=== PATIENT | male | born 1935 | race Caucasian/White ===

== ENCOUNTER 2018-10-28 05:40 | Inpatient (IN) ==
--- NOTE | 2018-10-28 12:35 | Internal Med History&Physical ---
Date of Encounter: 10/28/18 Time of Encounter: 12:34 Internal Medicine - H&P: HPI Chief complaint: Slurred speach History of present illness: 83-year-old male with PMH of MT, CHF and DM who was sent from detention to the emergency department after he sustained a fall and later he start complaining of difficulty with speech. The patient was unable to provide any history due to expressive aphasia. The patient was evaluated by the ER staff and CT scan shows evidence of a subacute stroke. The patient was out of the window for thrombolytics. The patient was admitted to the hospital for further evaluation and management. Past Med Surg Social Fam HX - Past Medical History Medical history: CHF, diabetes, myocardial infarction, other Additional medical history: Rhabdomyalysis, acute kidney injury, Left Ventricular hypertrophy Psychiatric history: no psych history - Past Surgical History Additional surgical history: sub-mucous resection - Social History Smoking Status: Former smoker Smokeless Tobacco Status: No Alcohol use: none Drug use: none - Family History Father Living Status: Hx Family Cardiac Disorders: Yes (CHF) Mother Living Status: Hx Family Cardiac Disorders: Yes (CHF) Internal Medicine - H&P: Meds Acetaminophen [Tylenol] 325 mg PO Q6HR PRN 09/27/18 [History] Cholecalciferol (Vitamin D3) [Vitamin D] 50,000 unit PO Q2W 09/27/18 [History] Cyanocobalamin (Vitamin B-12) [Vitamin B12] 1,000 mcg PO DAILY 09/27/18 [History] Dextran 70/Hypromellose [Artificial Tears] 2 drop BOTH EYES BID 09/27/18 [History] Gabapentin [Neurontin] 300 mg PO HS 09/27/18 [History] HYDROcodone/Acet 5/325 mg [[place] 5-325 mg] 0.5 tab PO Q4H PRN 09/27/18 [History] HYDROcodone/Acet 5/325 mg [[place] 5-325 mg] 1 tab PO HS 09/27/18 [History] Lidocaine Patch [Lidoderm 5% patch] 1 each TP DAILY PRN 09/27/18 [History] Losartan Potassium [Cozaar] 25 mg PO DAILY 09/27/18 [History] Magnesium Hydroxide [Milk of Magnesia] 30 ml PO DAILY PRN 09/27/18 [History] Melatonin [Melatin] 3 mg PO HS 09/27/18 [History] Mirtazapine 7.5 mg PO HS 09/27/18 [History] Omeprazole [PriLOSEC] 20 mg PO DAILY 09/27/18 [History] Saline Nasal [place] [[place] Nasal [place]] 2 ml NS AD 09/27/18 [History] Sennosides/Docusate Sodium [Senna-S Tablet] 1 each PO DAILY 09/27/18 [History] metFORMIN [Glucophage] 500 mg PO BIDWM 09/27/18 [History] DULoxetine [Cymbalta] 30 mg PO DAILY 10/28/18 [History] Allergy/AdvReac Type Severity Reaction Status Date / Time No Known Allergies Allergy Verified 10/28/18 03:01 All Systems PM: ROS was not not obtained due to slurred speech - Constitutional Vitals: Temp Pulse BP Pulse Ox 97.4 F L 80 142/92 98 10/28/18 12:05 10/28/18 12:05 10/28/18 12:05 10/28/18 12:05 General appearance: Present: pleasant Exam: below - Head Head exam: Present: atraumatic, normocephalic - Neck Neck exam general surgery: Present: supple, trachea midline. Absent: lymphadenopathy - Respiratory Respiratory exam: Present: CTAB. Absent: accessory muscle use, rales, rhonchi, wheezes - Cardiovascular Cardiovascular exam: Present: RRR, +S1, +S2. Absent: diastolic murmur, gallop, rubs, systolic murmur - GI/Abdominal GI/Abdominal exam: Present: normal bowel sounds, soft, no peritoneal signs. Absent: distended, tenderness - Extremities Exam Extremities exam: Present: warm, radial pulses palpable and symmetrical. Absent: calf tenderness, cyanotic, pedal edema - Neurological Exam Neurological exam: Present: altered, CN II-XII intact, no focal deficits. Absent: pronater drift, facial droop, speech deficit Internal Med - H&P Results - Labs CBC & Chem 7: 10/29/18 06:55 - Assessment and Plan (1) Expressive aphasia Current Visit: No Status: Acute Assessment and plan: I spoke with neurology, diabetes that Ct scan patient is suggestive ofleft parietal occipital vascular event. Follow-up MRI was recommended We will obtain a cardiac exam: Carotid Doppler studies as well 2D echo were ordered. We will start aspirin and statin therapy. (2) Protein-calorie malnutrition, moderate Current Visit: No Status: Acute Assessment and plan: We will obtain pre-albumin. (3) Diabetes Current Visit: No Status: Chronic Assessment and plan: The patient was diagnosed with diabetes mellitus on her last admission. We will start insulin sliding scale with coverage Qualifiers: Diabetes mellitus type: type 2 Diabetes mellitus intermediate project manager insulin use: without intermediate project manager use Diabetes mellitus complication status: without complication Qualified Code(s): E11.9 - Type 2 diabetes mellitus without complications (4) Fall Current Visit: Yes Status: Acute Assessment and plan: The patient status post mechanical fall old imaging studies was no significant abnormalities, patient has history of frequent falls that was attributed to Severe physical deconditioning, we will obtain PT/OT eval Qualifiers: Qualified Code(s): W19.XXXS - Unspecified fall, sequela (5) DVT prophylaxis Current Visit: Yes Status: Acute Assessment and plan: We will place SCDs - Time Spent With Patient Total time spent is greater than 50% in coordination of care (as documented) at patient's floor/unit and/or counseling patient:
[2018-10-28] MEDS ORDERED: Naloxone 0.4 MG/ML INJ IVP PRN (14:38)
[2018-10-28] MEDS ORDERED: Acetaminophen 325 MG TABLET PO PRN (14:38)
[2018-10-28] MEDS ORDERED: Ondansetron ODT 4 MG TAB.RAPDIS SL PRN (14:38)
--- NOTE | 2018-10-28 14:48 | Neurology - Consult Note ---
Date of Encounter: 10/28/18 Time of Encounter: 14:43 Assessment and Plan (1) Cerebrovascular accident Current Visit: No Status: Acute Patient's neurologic examination as well as the CT findings seem to be fitting of a left parietal occipital vascular event. However there seems to be some edema associated as well. I would also like to obtain an MRI scan of the brain with contrast to assess for the possibility of an underlying mass. Otherwise I recommend implementing stroke protocol orders for nursing. Certainly statin therapy and antihypertensives are indicated. Recommend aspirin 325 mg stat. Also recommend carotid Doppler studies. Echocardiogram is also indicated. Further recommendations will be made pending this workup. Qualifiers: CVA mechanism: unspecified Qualified Code(s): I63.9 - Cerebral infarction, unspecified History of Present Illness HPI: The chart was reviewed, the patient was seen and examined. Case was discussed with the medicine attending. Information regarding the case is somewhat scant. However, Mr. Melara is a 83 year old male is apparently transferred to our facility from a group home secondary to unwitnessed falls. Patient also appears to be demented. He is not capable of providing any meaningful history. There may be some superimposed encephalopathy. However his my understanding that he has developed acute speech difficulty combined with the falls. CT scan of the brain today revealed what is likely a subacute infarct in the left parietal occipital lobe region. I did personally review the CT scan of the brain and agree with his assessment. There are also chronic ischemic changes in the periventricular subcortical white matter along with an old right thalamic infarct. There is an extensive amount of cortical atrophy present. Patient does have stroke risk factors including his age, history of diabetes and CHF. He is not a candidate for any acute intervention or thrombolytic therapy. Patient was sleeping upon my entering the room and was arousable to voice. Seems to be in no acute distress. Past Med Surg Social Fam HX - Past Medical History Medical history: CHF, diabetes, myocardial infarction, other Additional medical history: Rhabdomyalysis, acute kidney injury, Left Ventricular hypertrophy Psychiatric history: no psych history - Past Surgical History Additional surgical history: sub-mucous resection - Social History Smoking Status: Former smoker Smokeless Tobacco Status: No Alcohol use: none Drug use: none - Family History Father Living Status: Hx Family Cardiac Disorders: Yes (CHF) Mother Living Status: Hx Family Cardiac Disorders: Yes (CHF) Medications and Allergies Acetaminophen [Tylenol] 325 mg PO Q6HR PRN 09/27/18 [History] Cholecalciferol (Vitamin D3) [Vitamin D] 50,000 unit PO Q2W 09/27/18 [History] Cyanocobalamin (Vitamin B-12) [Vitamin B12] 1,000 mcg PO DAILY 09/27/18 [History] Dextran 70/Hypromellose [Artificial Tears] 2 drop BOTH EYES BID 09/27/18 [History] Gabapentin [Neurontin] 300 mg PO HS 09/27/18 [History] HYDROcodone/Acet 5/325 mg [[place] 5-325 mg] 0.5 tab PO Q4H PRN 09/27/18 [History] HYDROcodone/Acet 5/325 mg [[place] 5-325 mg] 1 tab PO HS 09/27/18 [History] Lidocaine Patch [Lidoderm 5% patch] 1 each TP DAILY PRN 09/27/18 [History] Losartan Potassium [Cozaar] 25 mg PO DAILY 09/27/18 [History] Magnesium Hydroxide [Milk of Magnesia] 30 ml PO DAILY PRN 09/27/18 [History] Melatonin [Melatin] 3 mg PO HS 09/27/18 [History] Mirtazapine 7.5 mg PO HS 09/27/18 [History] Omeprazole [PriLOSEC] 20 mg PO DAILY 09/27/18 [History] Saline Nasal [employer] [[place] Nasal [employer]] 2 ml NS AD 09/27/18 [History] Sennosides/Docusate Sodium [Senna-S Tablet] 1 each PO DAILY 09/27/18 [History] metFORMIN [Glucophage] 500 mg PO BIDWM 09/27/18 [History] DULoxetine [Cymbalta] 30 mg PO DAILY 10/28/18 [History] Allergy/AdvReac Type Severity Reaction Status Date / Time No Known Allergies Allergy Verified 10/28/18 03:01 ROS unobtainable: due to mental status All Systems: The remainder of the systems were reviewed and are negative Physical Examination - Vital Signs Vital Signs: Initial Vital Signs Temp Pulse BP Pulse Ox 97.4 F L 80 142/92 98 10/28/18 12:05 10/28/18 12:05 10/28/18 12:05 10/28/18 12:05 - Exam Exam: General Examination: *CONSTITUTIONAL: normal *GENERAL APPEARANCE OF PATIENT appears healthy and well groomed *EYES: pupils equal, round, reactive to light and accommodation, conjunctiva clear without masses or ulcerations, fundi normal. *CARDIOVASCULAR no peripheral edema, distal temperature normal, dorsalis pedis pulses normal. Refer to vital signs Musculoskeletal: *GAIT AND STATION not assessed. Patient is a fall risk. *ASSESSMENT OF MUSCLE STRENGTH IN THE UPPER AND LOWER EXTREMITIES was difficult to examine this patient in the normal traditional manner because he has a significant motor apraxia. However he seems to have free range of motion of the left upper and left lower extremities. He does seem to have a bit of ataxia and clumsiness with the right upper extremity. He was able to raise the right leg off the bed. He seems to have normal bulk and tone in all 4 extremities. No involuntary movements or atrophy are identified. *MUSCLE TONE IN THE UPPER AND LOWER EXTREMITIES normal. No abnormal movements, fasciculations or atrophy identified. Neurological: *ORIENTATION to person only. He could not tell me the name of the current hospitalization, could not tell me the day or date, cannot tell me the month. I suspect that he has baseline dementia. 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 *CN III,IV, PERRLA extraocular eye movements were full, no nystagmus and no ptosis noted. *CN V shows normal sensation and jaw opens symmetrically. *CN VII shows normal facial movement symmetrically, upper and lower bilaterally. *CN VIII shows no significant hearing loss on examination in the office. *CN IX,,X palate elevated symmetrically and normal gag reflex was noted. *CN XI normal strength in the sternocleidomastoid muscles, symmetrical saige ulder shrugging. *CN XII tongue protruded in the midline, with normal strength and movement. *SENSORY EXAMINATION patient withdraws to noxious stim throughout. *REFLEXES: deep tendon reflexes were diminished throughout. No clonus is identified. *CEREBELLAR TESTING seems seems to have ataxia of the right upper extremity *PAIN LEVEL 0
[2018-10-28] MEDS: Aspirin Enteric Coated 325 MG Tablet PO SCH (16:14)
[2018-10-29] MEDS ORDERED: *HR* Dextrose 50 % in Water (Syg) 50 ML SYRINGE IVP PRN (05:06)
[2018-10-29] MEDS ORDERED: D5% in Water 1,000 ML IVC PRN (05:06)
[2018-10-29] MEDS ORDERED: Dextrose Gel 15 GM/37.5 ML TUBE PO PRN ×2 (05:06)
[2018-10-29] MEDS ORDERED: Acetaminophen IV 500 MG/50 ML INFUS..BTL IVPB ONE (05:42)
[2018-10-29] MEDS: Insulin LISPRO 300 UNITS/3 ML VIAL SQ SCH ×3 (06:32→16:56)
[2018-10-29 07:48] LABS: Basophils % 0.2 %; Eosinophils # 0.2 K/mcL (0.0-0.6); Hemoglobin 14.8 g/dL (12.9-16.9); Immature Granulocytes % 0.2 % (0-4); Lymphocytes # 2.2 K/mcL (0.6-4.6); Mean Corpuscular HGB Conc 32.2 g/dL (31.6-35.5); Mean Corpuscular Hemoglobin 29.3 pg (28.0-33.3); Mean Corpuscular Volume 91.1 fL (83.0-100.0); Mean Platelet Volume 9.8 fL (9.4-12.4); Monocytes # 0.7 K/mcL (0.0-1.3); Monocytes % 8.7 %; Neutrophils # 4.9 K/mcL (1.6-8.9); Platelet Count 294 K/mcL (140-400); Red Blood Count 5.05 M/mcL (4.19-5.50); Red Cell Distribution Width 13.5 % (11.5-14.5); Segmented Neutrophils % 60.9 %
[2018-10-29 07:50] LABS: Estimated Average Glucose 148 mg/dl; Hemoglobin A1C 6.8 %
[2018-10-29 07:57] LABS: INR 1.1; Prothrombin Time 12.9 Seconds (9.4-12.1)
[2018-10-29 07:59] LABS: Activated Partial Thrombo Time 35.4 Seconds (26.0-36.0)
[2018-10-29] MEDS ORDERED: Perflutren Lipid Microsphere 1.3 ML in 0.9 % Sodium Chloride 8.7 ML IVP ONE (08:01)
[2018-10-29 08:08] LABS: Alanine Aminotransferase 4 Units/L (7-52); Albumin 3.7 g/dL (3.5-5.7); Albumin/Globulin Ratio 1.1 (1.1-2.2); Alkaline Phosphatase 68 Units/L (34-104); Aspartate Amino Transferase 7 Units/L (13-39); BUN/Creatinine Ratio 21 (6-26); Bilirubin,Total 0.5 mg/dL (0.3-1.0); Blood Urea Nitrogen 23 mg/dL (8-23); Calcium 10.1 mg/dL (8.6-10.3); Carbon Dioxide 24 mEq/L (23-29); Chloride 99 mEq/L (98-107); Globulin 3.5 g/dL (2.4-3.5); Glucose 113 mg/dL (70-105); Osmolality,Calculated 292 (280-300); Phosphorous 2.9 mg/dL (2.7-4.5); Potassium 4.3 mEq/L (3.5-5.1); Sodium 139 mEq/L (136-145); Total Protein 7.2 g/dL (6.4-8.9); eGFR For Non-African Americans > 60 (> 60)
[2018-10-29 08:09] LABS: Chol/HDL Ratio 5.5 (0-4.9); Cholesterol 192 mg/dL (< 200); HDL Cholesterol 35 mg/dL (40-59); LDL Cholesterol,Calculated 127 mg/dL (0-99); Triglycerides 149 mg/dL (< 150)
[2018-10-29 08:12] LABS: Troponin I < 0.03 ng/mL (< 0.04)
[2018-10-29] MEDS: Aspirin Enteric Coated 325 MG Tablet PO SCH (08:23)
--- NOTE | 2018-10-29 08:48 | Internal Med Progress Note ---
Hospitalist Progress Note - Encounter Date of Encounter: 10/29/18 Time of Encounter: 08:46 - Subjective Interval History: Patient seen and examined this morning at bedside. No acute overnight events. Patient awake and alert however not able to comprehend questions. Not able to offer any complaints. Has Giraldo in place. - Exam Vitals: Temp Pulse Resp BP Pulse Ox 98.1 F 89 18 104/75 93 10/29/18 06:24 10/29/18 06:24 10/29/18 06:24 10/29/18 06:24 10/29/18 00:54 Exam: General: In no acute distress. not able to completely close Lt eye Respiratory exam: CTAB. no accessory muscle use, rales, rhonchi, wheezes Cardiovascular exam: RRR, +S1, +S2. no murmur, gallop, rubs. GI/Abdominal exam: Non-tender, Non-distended, normal bowel sounds, soft, no peritoneal signs. Extremities exam: no pedal edema, pulses palpable in b/l lower extremities. no calf tenderness Neurological exam: Not able to follow commands. Mild facial asymmetry with dropping on Lt. answers "yes" to every question, Skin exam: No skin rash - Assessment and Plan (1) Diabetes Current Visit: No Status: Chronic (2) Protein-calorie malnutrition, moderate Current Visit: No Status: Acute (3) Expressive aphasia Current Visit: No Status: Acute (4) DVT prophylaxis Current Visit: Yes Status: Acute (5) Fall Current Visit: Yes Status: Acute - Summary of Assessment and Plan Summary of Assessment and Plan: Assessment Acute subacute CVA fall DVT prophylaxis Chronic CAD Dementia depression HTN DM diastolic CHF Plan - Patien with expressive aphasia suspected from subacute parietal-occipital vascular event. Did not receive thrombolysis. MRI, ECHO and Carotid ordered and pending. Started on aspirin. start atorvastatin. Hold antihypertensive for today. - PT/OT and speech consult ordered. - accuchecks and SSI. - Will resume home medication once confirmed. - SCD for dvt prophylaxis. - Time Spent with Patient Total time spent is greater than 50% in coordination of care (as documented) at patient's floor/unit and/or counseling patient: Internal Medicine: Result - Labs CBC & Chem 7: 10/29/18 06:55 10/29/18 06:55 Labs: Short CBC 10/29/18 Range/Units 06:55 WBC 8.0 (4.3-11.1) K/mcL Hgb 14.8 (12.9-16.9) g/dL Hct 46.0 (37.5-50.1) % Plt Count 294 (140-400) K/mcL Neutrophils # 4.9 (1.6-8.9) K/mcL BMP 10/29/18 06:55 Sodium 139 Potassium 4.3 Chloride 99 Carbon Dioxide 24 BUN 23 Creatinine 1.07 Glucose 113 H Calcium 10.1 Cardiac Enzymes 10/29/18 Range/Units 06:55 Troponin I < 0.03 (< 0.04) ng/mL Liver Function 10/29/18 Range/Units 06:55 Total Bilirubin 0.5 (0.3-1.0) mg/dL AST 7 L (13-39) Units/L ALT 4 L (7-52) Units/L Alkaline Phosphatase 68 (34-104) Units/L Albumin 3.7 (3.5-5.7) g/dL - ABG Interpretation ABG results: PT/INR, D-dimer PT 12.9 Seconds (9.4-12.1) H 10/29/18 06:55 Consult Discharge Plan - Plan Referrals: NONE,PCP [Primary Care Provider] - (1) Diabetes Qualifiers: Diabetes mellitus type: type 2 Diabetes mellitus [facility] insulin use: without termite helper use Diabetes mellitus complication status: without complication Qualified Code(s): E11.9 - Type 2 diabetes mellitus without complications (5) Fall Qualifiers: Qualified Code(s): W19.XXXS - Unspecified fall, sequela
[2018-10-29] MEDS ORDERED: Haloperidol Lactate 5 MG/ML VIAL IVP PRN (12:32)
--- NOTE | 2018-10-29 15:01 | Neurology Progress Note ---
Date of Encounter: 10/29/18 Time of Encounter: 14:58 Assessment and Plan (1) Cerebrovascular accident Current Visit: No Status: Acute Patient appears to be clinically improved today. He has less weakness of the right upper and right lower extremity is more alert. MRI scan of the brain with contrast is pending. Echocardiogram and carotid studies are pending as well. Maintain aspirin, as well as stroke protocol orders. Further recommendations will be made after completion of the tests that are pending. Qualifiers: CVA mechanism: unspecified Qualified Code(s): I63.9 - Cerebral infarction, unspecified Subjective Interval history: Chart was reviewed, patient was seen and examined. He seems a much more alert today, however remains pleasantly confused. He still cannot tell me the name of the facility where he is currently hospitalized. He is able to indulge in superficial conversation. He is able to follow simple commands. He is able to raise the right arm and right leg. The MRI has not been completed. Apparently he was confused overnight was started on Haldol. Objective - Constitutional Vitals: Temp Pulse Resp BP Pulse Ox 97.9 F 91 18 149/87 93 10/29/18 11:23 10/29/18 11:23 10/29/18 06:24 10/29/18 11:23 10/29/18 00:54 Exam: Exam: General Examination: *CONSTITUTIONAL: normal *GENERAL APPEARANCE OF PATIENT appears healthy and well groomed *EYES: pupils equal, round, reactive to light and accommodation, conjunctiva clear without masses or ulcerations, fundi normal. *CARDIOVASCULAR no peripheral edema, distal temperature normal, dorsalis pedis pulses normal. Refer to vital signs Musculoskeletal: *GAIT AND STATION not assessed. Patient is a fall risk. *ASSESSMENT OF MUSCLE STRENGTH IN THE UPPER AND LOWER EXTREMITIES He seems to have normal bulk and tone in all 4 extremities. No involuntary movements or atrophy are identified. He is better able to move the right upper and right lower extremities today. *MUSCLE TONE IN THE UPPER AND LOWER EXTREMITIES normal. No abnormal movements, fasciculations or atrophy identified. Neurological: *ORIENTATION to person only. He could not tell me the name of the current hospital, could not tell me the day or date, cannot tell me the month. I suspect that he has baseline dementia. 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 *CN III,IV, PERRLA extraocular eye movements were full, no nystagmus and no ptosis noted. *CN V shows normal sensation and jaw opens symmetrically. *CN VII shows normal facial movement symmetrically, upper and lower bilaterally. *CN VIII shows no significant hearing loss on examination in the office. *CN IX,,X palate elevated symmetrically and normal gag reflex was noted. *CN XI normal strength in the sternocleidomastoid muscles, symmetrical shoulder shrugging. *CN XII tongue protruded in the midline, with normal strength and movement. *SENSORY EXAMINATION patient withdraws to noxious stim throughout. *REFLEXES: deep tendon reflexes were diminished throughout. No clonus is identified. *CEREBELLAR TESTING seems seems to have ataxia of the right upper extremity *PAIN LEVEL 0 Results - Laboratory Findings CBC and BMP: 10/29/18 06:55 10/29/18 06:55 Abnormal lab findings: Abnormal lab results PT 12.9 Seconds (9.4-12.1) H 10/29/18 06:55 Glucose 113 mg/dL (70-105) H 10/29/18 06:55 POC Glucose 107 mg/dL (70-99) H 10/29/18 06:31 6.8 % (-5.6) H 10/29/18 06:55 AST 7 Units/L (13-39) L 10/29/18 06:55 ALT 4 Units/L (7-52) L 10/29/18 06:55 LDL Cholesterol, Calc 127 mg/dL (0-99) H 10/29/18 06:55 35 mg/dL (40-59) L 10/29/18 06:55 5.5 (0-4.9) H 10/29/18 06:55 Consult Discharge Plan - Plan Referrals: NONE,PCP [Primary Care Provider] -
[2018-10-30] MEDS: Insulin LISPRO 300 UNITS/3 ML VIAL SQ SCH ×4 (00:47→17:10)
[2018-10-30] MEDS: Aspirin Enteric Coated 325 MG Tablet PO SCH (08:15)
--- NOTE | 2018-10-30 10:53 | Internal Med Progress Note ---
Hospitalist Progress Note - Encounter Date of Encounter: 10/30/18 Time of Encounter: 10:53 - Subjective Interval History: Patient seen and examined this morning at bedside. No acute overnight events. Patient alert and awake. Responds slightly more [place] however occasionally not able to answer coherently and repeats "yes". Complains of pain however not able to tell me exactly where. Foul-smelling. Giraldo in place. - Exam Vitals: Temp Pulse Resp BP Pulse Ox 98.6 F 93 18 140/66 91 10/30/18 07:37 10/30/18 07:37 10/30/18 07:37 10/30/18 07:37 10/30/18 08:22 Exam: General: In no acute distress. not able to completely close Lt eye Respiratory exam: CTAB. no accessory muscle use, rales, rhonchi, wheezes Cardiovascular exam: RRR, +S1, +S2. no murmur, gallop, rubs. GI/Abdominal exam: Non-tender, Non-distended, normal bowel sounds, soft, no peritoneal signs. Extremities exam: no pedal edema, pulses palpable in b/l lower extremities. no calf tenderness Neurological exam: Not able to follow commands consistently. Understands simple command. Rt LE weakness appreciated however patient not able to follow commands consistently Skin exam: No skin rash - Assessment and Plan (1) Diabetes Current Visit: No Status: Chronic (2) Protein-calorie malnutrition, moderate Current Visit: No Status: Acute (3) Expressive aphasia Current Visit: No Status: Acute (4) DVT prophylaxis Current Visit: Yes Status: Acute (5) Fall Current Visit: Yes Status: Acute - Summary of Assessment and Plan Summary of Assessment and Plan: Assessment Acute subacute CVA fall DVT prophylaxis Chronic CAD Dementia depression HTN DM diastolic CHF Plan - Patient with expressive aphasia suspected from subacute parietal-occipital vascular event. Did not receive thrombolysis. MRI, ECHO and Carotid ordered and pending. c/w aspirin, atorvastatin. Resume home losartan. To get MRI per radiology protocol after clearing films negative. Neurology following, recommendation appreciated - PT/OT and speech consult ordered. await evaluation - accuchecks and SSI. - [place]ar baseline mentation. resume home remeron. hold haldol - SCD for dvt prophylaxis. - Time Spent with Patient Total time spent is greater than 50% in coordination of care (as documented) at patient's floor/unit and/or counseling patient: Internal Medicine: Result - Labs CBC & Chem 7: 10/29/18 06:55 10/29/18 06:55 - ABG Interpretation ABG results: PT/INR, D-dimer PT 12.9 Seconds (9.4-12.1) H 10/29/18 06:55 Consult Discharge Plan - Plan Referrals: NONE,PCP [Primary Care Provider] - (1) Diabetes Qualifiers: Diabetes mellitus type: type 2 Diabetes mellitus prison insulin use: without ad terminal makeup operator use Diabetes mellitus complication status: without complication Qualified Code(s): E11.9 - Type 2 diabetes mellitus without complications (5) Fall Qualifiers: Qualified Code(s): W19.XXXS - Unspecified fall, sequela
[2018-10-30] MEDS: Cholecalciferol (D-3) 1,000 UNIT TABLET PO SCH (12:04)
--- NOTE | 2018-10-30 16:37 | Neurology Progress Note ---
Date of Encounter: 10/30/18 Time of Encounter: 16:35 Assessment and Plan (1) Cerebrovascular accident Current Visit: No Status: Acute The patient this time seems to stabilizing from a cognitive perspective. He is not agitated today. However he is pleasantly confused. MRI confirms an acute infarct in the left parietal occipital region. Again stroke risk factors include his age and diabetes. Carotid Doppler study revealed nonstenotic plaquing in the echocardiogram is yet pending. I do not however in any regard feel that he will be a good candidate for anticoagulation particularly with dementia. I would simply recommend maintaining aspirin as well as statin therapy and monitoring his blood pressure. Motor likely he will need to have long-term arrangements for you and extended care facility or assisted living. I will reevaluate him at your request. Qualifiers: CVA mechanism: unspecified Qualified Code(s): I63.9 - Cerebral infarction, unspecified Subjective Interval history: The chart was reviewed, the patient was seen and examined. Patient is laying in bed sleeping in no acute distress. He aroused to voice. He remains pleasantly confused. Follows some simple commands. He can tell me his name however cannot tell me the name of this facility. He is not able to offer any meaningful information regarding his background or any insight into why he is in the hospital. MRI scan of the brain does reveal an acute left parietal occipital lobe infarct. There is also significant element of cortical atrophy along with a deep white matter changes and an old right thalamic infarct. The carotid Doppler study reveals nonstenotic plaquing. Echocardiogram is yet pending. Objective - Constitutional Vitals: Temp Pulse Resp BP Pulse Ox 98.6 F 93 18 140/66 91 10/30/18 07:37 10/30/18 07:37 10/30/18 07:37 10/30/18 07:37 10/30/18 08:22 Exam: Exam: General Examination: *CONSTITUTIONAL: normal *GENERAL APPEARANCE OF PATIENT appears healthy and well groomed *EYES: pupils equal, round, reactive to light and accommodation, conjunctiva clear without masses or ulcerations, fundi normal. *CARDIOVASCULAR no peripheral edema, distal temperature normal, dorsalis pedis pulses normal. Refer to vital signs Musculoskeletal: *GAIT AND STATION not assessed. Patient is a fall risk. *ASSESSMENT OF MUSCLE STRENGTH IN THE UPPER AND LOWER EXTREMITIES He seems to have normal bulk and tone in all 4 extremities. No involuntary movements or atrophy are identified. *MUSCLE TONE IN THE UPPER AND LOWER EXTREMITIES normal. No abnormal mo vements, fasciculations or atrophy identified. Neurological: *ORIENTATION to person only. He could not tell me the name of the current hospital, could not tell me the day or date, cannot tell me the month. I suspect that he has baseline dementia. 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 *CN III,IV, PERRLA extraocular eye movements were full, no nystagmus and no ptosis noted. *CN V shows normal sensation and jaw opens symmetrically. *CN VII shows normal facial movement symmetrically, upper and lower bilaterally. *CN VIII shows no significant hearing loss on examination in the office. *CN IX,,X palate elevated symmetrically and normal gag reflex was noted. *CN XI normal strength in the sternocleidomastoid muscles, symmetrical shoulder shrugging. *CN XII tongue protruded in the midline, with normal strength and movement. *SENSORY EXAMINATION patient withdraws to noxious stim throughout. *REFLEXES: deep tendon reflexes were diminished throughout. No clonus is identified. *CEREBELLAR TESTING seems seems to have ataxia of the right upper extremity *PAIN LEVEL 0 Results - Laboratory Findings CBC and BMP: 10/29/18 06:55 10/29/18 06:55 Abnormal lab findings: Abnormal lab results PT 12.9 Seconds (9.4-12.1) H 10/29/18 06:55 Glucose 113 mg/dL (70-105) H 10/29/18 06:55 POC Glucose 105 mg/dL (70-99) H 10/30/18 00:46 6.8 % (-5.6) H 10/29/18 06:55 AST 7 Units/L (13-39) L 10/29/18 06:55 ALT 4 Units/L (7-52) L 10/29/18 06:55 16.4 mg/dL (17.0-34.0) L 10/30/18 09:51 LDL Cholesterol, Calc 127 mg/dL (0-99) H 10/29/18 06:55 35 mg/dL (40-59) L 10/29/18 06:55 5.5 (0-4.9) H 10/29/18 06:55 Consult Discharge Plan - Plan Referrals: NONE,PCP [Primary Care Provider] -
[2018-10-30] MEDS ORDERED: Perflutren Lipid Microsphere 1.3 ML in 0.9 % Sodium Chloride 8.7 ML IVP ONE (18:49)
[2018-10-30] MEDS ORDERED: Haloperidol Lactate 5 MG/ML VIAL IVP ONE (20:51)
[2018-10-30] MEDS ORDERED: Mirtazapine 15 MG TABLET PO SCH (21:00)
[2018-10-31] MEDS: Insulin LISPRO 300 UNITS/3 ML VIAL SQ SCH ×3 (00:42→11:33)
[2018-10-31] MEDS: Cholecalciferol (D-3) 1,000 UNIT TABLET PO SCH (08:44)
[2018-10-31] MEDS: Aspirin Enteric Coated 325 MG Tablet PO SCH (08:44)
[2018-10-31] MEDS ORDERED: Cyanocobalamin (B-12) 1,000 MCG TABLET PO SCH (09:00)
--- NOTE | 2018-10-31 13:06 | Discharge Summary ---
- NOTES TO OUTPATIENT PROVIDER Notes to Outpatient Provider: Had left parietal CVA. Consider adding antihypertensive if blood pressure consistently above 140 systolic. Started on statin on discharge. Date of Encounter: 10/31/18 Time of Encounter: 11:06 - Discharge Diagnosis (1) Diabetes Priority: Secondary Status: Chronic Qualifiers: Diabetes mellitus type: type 2 Diabetes mellitus care home insulin use: without care home use Diabetes mellitus complication status: without complication Qualified Code(s): E11.9 - Type 2 diabetes mellitus without complications (2) Protein-calorie malnutrition, moderate Priority: Secondary Status: Acute (3) Expressive aphasia Priority: Primary Status: Acute (4) DVT prophylaxis Priority: Secondary Status: Acute (5) Fall Priority: Primary Status: Acute Qualifiers: Qualified Code(s): W19.XXXS - Unspecified fall, sequela (6) Dementia Priority: Secondary Status: Acute Qualifiers: Dementia type: unspecified type Dementia behavioral disturbance: with behavioral disturbance Qualified Code(s): F03.91 - Unspecified dementia with behavioral disturbance (7) Hypertension Priority: Secondary Status: Acute Qualifiers: Hypertension type: essential hypertension Qualified Code(s): I10 - Essential (primary) hypertension (8) Cerebrovascular accident Priority: Primary Status: Acute Qualifiers: CVA mechanism: unspecified Qualified Code(s): I63.9 - Cerebral infarction, unspecified (9) CHF (congestive heart failure) Priority: Secondary Status: Chronic Qualifiers: Heart failure type: diastolic Heart failure chronicity: chronic Qualified Code(s): I50.32 - Chronic diastolic (congestive) heart failure Hospital course: Mr. Melara is a 83 year old male with past medical history of CAD, diastolic CHF, diabetes came from long term after a fall and slurring of speech. Patient was found to have possible left parietal occipital vascular event on CT. Neurology was consulted. Patient had some agitation on his baseline dementia which was managed with Haldol. MRI echocardiogram and carotid were ordered. Patient was started on aspirin and atorvastatin. Permissive hypertension was allowed initially. MRI confirmed left parietal occipital infarct. Carotid Doppler revealed nonstenotic plaque bilaterally. Echocardiogram was of poor quality. Patient also more alert but still disoriented. Not agitated anymore. Patient will need rehabilitation with physical therapy. Patient is otherwise stable to be discharged to long term. We will increase metformin to twice a day and continue statin on discharge. Discharge discussed with: patient, nurse, social work - Time Spent with Patient Total time spent providing and/or coordinating discharge services: Time spent: Greater than 30 minutes (40) - Discharge Medications Prescriptions: New Atorvastatin [Lipitor] 40 mg PO HS tablet Continued Losartan Potassium 25 mg PO DAILY Magnesium Hydroxide [Milk of Magnesia] 2,400 mg PO DAILY PRN PRN Reason: Constipation Menthol/Zinc Oxide [[place] Medicated Body Powd] 1 appl TP BID Menthol/Zinc Oxide [[place] Medicated Body Powd] 1 appl TP DAILY PRN PRN Reason: ITCH/REDNESS Non-Formulary Medication 30 ml PO Q8H PRN PRN Reason: Heartburn Sennosides/Docusate Sodium [Senna-S Tablet] 1 tab PO DAILY Saline Nasal [place] [[place] Nasal [place]] 2 spray NS TID PRN PRN Reason: Congestion Omeprazole [PriLOSEC] 20 mg PO DAILY Mirtazapine 7.5 mg PO HS Melatonin [Melatin] 3 mg PO HS Lidocaine Patch [Lidoderm 5% patch] 1 patch TP DAILY PRN PRN Reason: Pain Dextran 70/Hypromellose [Artificial Tears] 2 drop BOTH EYES BID Cyanocobalamin (Vitamin B-12) [Vitamin B12] 1,000 mcg PO DAILY Cholecalciferol (Vitamin D3) [Vitamin D3] 50,000 unit PO Q2W Acetaminophen [Tylenol] 325 mg PO Q6HR PRN PRN Reason: Pain/FEVER DULoxetine [Cymbalta] 30 mg PO DAILY Changed metFORMIN [Glucophage] 500 mg PO BID #0 Discontinued HYDROcodone/Acet 5/325 mg [[place] 5-325 mg] 0.5 tab PO Q4H PRN PRN Reason: Pain HYDROcodone/Acet 5/325 mg [[place] 5-325 mg] 1 tab PO HS Gabapentin [Neurontin] 300 mg PO HS Home Medications: Acetaminophen [Tylenol] 325 mg PO Q6HR PRN 09/27/18 [History] Cholecalciferol (Vitamin D3) [Vitamin D3] 50,000 unit PO Q2W 09/27/18 [History] Cyanocobalamin (Vitamin B-12) [Vitamin B12] 1,000 mcg PO DAILY 09/27/18 [History] Dextran 70/Hypromellose [Artificial Tears] 2 drop BOTH EYES BID 09/27/18 [History] Lidocaine Patch [Lidoderm 5% patch] 1 patch TP DAILY PRN 09/27/18 [History] Melatonin [Melatin] 3 mg PO HS 09/27/18 [History] Mirtazapine 7.5 mg PO HS 09/27/18 [History] Omeprazole [PriLOSEC] 20 mg PO DAILY 09/27/18 [History] Saline Nasal [place] [[place] Nasal [place]] 2 spray NS TID PRN 09/27/18 [History] Sennosides/Docusate Sodium [Senna-S Tablet] 1 tab PO DAILY 09/27/18 [History] DULoxetine [Cymbalta] 30 mg PO DAILY 10/28/18 [History] Losartan Potassium 25 mg PO DAILY 10/30/18 [History] Magnesium Hydroxide [Milk of Magnesia] 2,400 mg PO DAILY PRN 10/30/18 [History] Menthol/Zinc Oxide [[place] Medicated Body Powd] 1 appl TP BID 10/30/18 [History] Menthol/Zinc Oxide [[place] Medicated Body Powd] 1 appl TP DAILY PRN 10/30/18 [History] Non-Formulary Medication 30 ml PO Q8H PRN 10/30/18 [History] Atorvastatin [Lipitor] 40 mg PO HS tablet 10/31/18 [Rx] metFORMIN [Glucophage] 500 mg PO BID #0 10/31/18 [Rx] Allergies/Adverse Reactions: Allergy/AdvReac Type Severity Reaction Status Date / Time No Known Allergies Allergy Verified 10/30/18 08:49 Date of admission: 10/30/18 16:58 Primary care physician: PCP NONE Consults: 10/28/18 12:23 Consult to Nutrition [CONS] Routine Comment: Consulting Provider: NUTRITION Reason for Dietary Consult: MST Score Consult to [employer] [CONS] Routine Reason for SW Consult: patient is [facility] 10/28/18 14:37 Consult to Neurology [CONS] Routine Consulting Provider: Neurology [facility] Reason for Consult: CVA Time Notified: 14:38 Call Completed: No 10/28/18 14:41 Consult to Speech Therapy [CONS] Routine Comment: Evaluate, develop and implement POC Reason for Consult: CVA Time Notified: 14:44 Call Completed: No 10/28/18 14:42 Consult to Occupational Therapy [CONS] Routine Comment: Evaluate, develop and implement POC Reason for Consult: CVA Does patient have active BEDREST order?: Yes Is patient medically & hemodynamically stable?: Yes Patient assessed for mobility or mobilized this visit?: No Consult to Physical Therapy [CONS] Routine Comment: Evaluate, develop and implement POC Reason for Consult: CVA Does patient have active BEDREST order?: Yes Is patient medically & hemodynamically stable?: Yes Patient assessed for mobility or mobilized this visit?: No Discharging clinician: Mi Cristobal - Constitutional Vitals: Temp Pulse Resp BP Pulse Ox 97.8 F 98 18 153/93 93 10/31/18 06:40 10/31/18 06:40 10/31/18 06:40 10/31/18 06:40 10/31/18 06:40 Exam: General: In no acute distress. Respiratory exam: CTAB. no accessory muscle use, rales, rhonchi, wheezes Cardiovascular exam: RRR, +S1, +S2. no murmur, gallop, rubs. GI/Abdominal exam: Non-tender, Non-distended, normal bowel sounds, soft, no peritoneal signs. Extremities exam: no pedal edema, pulses palpable in b/l lower extremities. no calf tenderness Neurological exam: More alert but not oriented. follows simple command. Rt UE/ LE weakness, Lt facial weakness. - Patient Status Disposition: Transfer SNF Condition: Fair - Discharge Instructions Follow Up With: NONE,PCP [Primary Care Provider] - - Diet and Activity Activity: increase activity as tolerated
--- NOTE | 2018-10-31 13:40 | Physician Discharge Referral ---
ExtendedCare Referral Info Institutional Level of Care: Skilled - Diagnosis (1) Diabetes Status: Chronic (2) Protein-calorie malnutrition, moderate Status: Acute (3) Expressive aphasia Status: Acute (4) DVT prophylaxis Status: Acute (5) Fall Status: Acute (6) Dementia Status: Acute (7) Hypertension Status: Acute (8) Cerebrovascular accident Status: Acute (9) CHF (congestive heart failure) Status: Chronic - Transfer Medications Home Medications: Acetaminophen [Tylenol] 325 mg PO Q6HR PRN 09/27/18 [History] Cholecalciferol (Vitamin D3) [Vitamin D3] 50,000 unit PO Q2W 09/27/18 [History] Cyanocobalamin (Vitamin B-12) [Vitamin B12] 1,000 mcg PO DAILY 09/27/18 [History] Dextran 70/Hypromellose [Artificial Tears] 2 drop BOTH EYES BID 09/27/18 [History] Lidocaine Patch [Lidoderm 5% patch] 1 patch TP DAILY PRN 09/27/18 [History] Melatonin [Melatin] 3 mg PO HS 09/27/18 [History] Mirtazapine 7.5 mg PO HS 09/27/18 [History] Omeprazole [PriLOSEC] 20 mg PO DAILY 09/27/18 [History] Saline Nasal [place] [[place] Nasal [place]] 2 spray NS TID PRN 09/27/18 [History] Sennosides/Docusate Sodium [Senna-S Tablet] 1 tab PO DAILY 09/27/18 [History] DULoxetine [Cymbalta] 30 mg PO DAILY 10/28/18 [History] Losartan Potassium 25 mg PO DAILY 10/30/18 [History] Magnesium Hydroxide [Milk of Magnesia] 2,400 mg PO DAILY PRN 10/30/18 [History] Menthol/Zinc Oxide [[place] Medicated Body Powd] 1 appl TP BID 10/30/18 [History] Menthol/Zinc Oxide [[place] Medicated Body Powd] 1 appl TP DAILY PRN 10/30/18 [History] Non-Formulary Medication 30 ml PO Q8H PRN 10/30/18 [History] Atorvastatin [Lipitor] 40 mg PO HS tablet 10/31/18 [Rx] metFORMIN [Glucophage] 500 mg PO BID #0 10/31/18 [Rx] Allergies/Adverse Reactions: Allergy/AdvReac Type Severity Reaction Status Date / Time No Known Allergies Allergy Verified 10/30/18 08:49 - Respiratory Orders Smoking Cessation: Smoking cessation has been advised. For more information, call the [place] Tobacco Quit Line at 7-277-ZDQS-NOW. CERTIFICATION: I certify that the transfer of the above named patient to an Extended Care Facility is necessary for the continuing treatment of the diagnosis listed. The above information is true and accurate reflection of patient's current condit ion. Confidential - Redisclosure prohibited without a patient's written consent.
[2018-10-31 15:40] VITALS: BP 136/89
== END 2018-10-31 16:34 | DRG 65 ==
LOC: 2NENU → SUATTDRO 12:03
PROVIDERS: ADMIT Internal Medicine; ATTEND Internal Medicine

== ENCOUNTER 2018-11-11 13:20 | Inpatient (IN) ==
[2018-11-11] MEDS ORDERED: Naloxone 0.4 MG/ML INJ IVP PRN (15:56)
[2018-11-11] MEDS ORDERED: D5% in Water 1,000 ML IVC PRN (16:00)
[2018-11-11] MEDS ORDERED: Dextrose Gel 15 GM/37.5 ML TUBE PO PRN ×2 (16:00)
[2018-11-11] MEDS ORDERED: *HR* Dextrose 50 % in Water (Syg) 50 ML SYRINGE IVP PRN (16:00)
--- NOTE | 2018-11-11 16:21 | Internal Med History&Physical ---
Date of Encounter: 11/11/18 Time of Encounter: 16:21 Internal Medicine - H&P: HPI Chief complaint: Facial cellulitis Admitted From: Long-term Nursing Facility Plans for Post Hospital Care: Transfer Longterm Facility History of present illness: Mr. Melara is a 83 year old male with PMH diabetes, CVA and dementia with chronic Giraldo presented to OSH on 11/11/18 with complaints of facial cellulitis. He was found to have sialadenitis in the left parotid gland therefore he was transferred to [facility] for IV ATB and ENT evaluation. Permission obtained from chart review and OSH records only as patient has severe dementia and unable to provide any information. No family at bedside. Discussed with RN who reported that symptoms apparently started this morning at ECF and he was sent to the local hospital. No other details unknown at this time. Patient will respond to his name but unable to obtain any other information. He repeats the word yes overnight over again. We will follow comm ands at times. No other information is available. Past Med Surg Social Fam HX - Past Medical History Medical history: CHF, CVA, diabetes, hyperlipidemia, hypertension, myocardial infarction, renal disease, other Additional medical history: Rhabdomyalysis, acute kidney injury, Left Ventricular hypertrophy Psychiatric history: no psych history - Past Surgical History Additional surgical history: sub-mucous resection - Social History Smoking Status: Former smoker Smokeless Tobacco Status: No Alcohol use: none Drug use: none - Family History Father Living Status: Hx Family Cardiac Disorders: Yes (CHF) Mother Living Status: Hx Family Cardiac Disorders: Yes (CHF) Internal Medicine - H&P: Meds Acetaminophen [Tylenol] 325 mg PO Q6HR PRN 09/27/18 [History] Cholecalciferol (Vitamin D3) [Vitamin D3] 50,000 unit PO Q2W 09/27/18 [History] Cyanocobalamin (Vitamin B-12) [Vitamin B12] 1,000 mcg PO DAILY 09/27/18 [History] Dextran 70/Hypromellose [Artificial Tears] 2 drop BOTH EYES BID 09/27/18 [History] Lidocaine Patch [Lidoderm 5% patch] 1 patch TP DAILY PRN 09/27/18 [History] Melatonin [Melatin] 3 mg PO HS 09/27/18 [History] Mirtazapine 7.5 mg PO HS 09/27/18 [History] Omeprazole [PriLOSEC] 20 mg PO DAILY 09/27/18 [History] Saline Nasal [place] [[place] Nasal [place]] 2 spray NS TID PRN 09/27/18 [History] DULoxetine [Cymbalta] 60 mg PO DAILY 10/28/18 [History] Losartan Potassium 25 mg PO DAILY 10/30/18 [History] Magnesium Hydroxide [Milk of Magnesia] 2,400 mg PO DAILY PRN 10/30/18 [History] Menthol/Zinc Oxide [[place] Medicated Body Powd] 1 appl TP BID 10/30/18 [History] Menthol/Zinc Oxide [[place] Medicated Body Powd] 1 appl TP DAILY PRN 10/30/18 [History] Atorvastatin [Lipitor] 40 mg PO HS tablet 10/31/18 [Rx] metFORMIN [Glucophage] 500 mg PO BID #0 10/31/18 [Rx] Ascorbate Calcium [Vitamin C] 500 mg PO BID 11/11/18 [History] Mag Hydrox/Al Hydrox/Simeth [Maalox] 30 ml PO Q8H PRN 11/11/18 [History] Allergy/AdvReac Type Severity Reaction Status Date / Time No Known Allergies Allergy Verified 10/30/18 08:49 ROS unobtainable: due to mental status (hx severe dementia ) All Systems PM: A 10-system review of systems was performed and is negative for pertinent findings except as documented above in the HPI. - Constitutional Vitals: Temp Pulse Resp BP Pulse Ox 98.2 F 101 18 142/94 94 11/11/18 15:34 11/11/18 15:34 11/11/18 15:34 11/11/18 15:34 11/11/18 15:34 General appearance: Present: A&O X 1 Exam: . - Head Head exam: Present: atraumatic, normocephalic. Absent: normal inspection Additional comments: Erythema and swelling to left parotid - Eye Eye exam: Present: PERRL, conjuntiva pink, sclera anicteric Pupils: Present: PERRL - Neck Neck exam general surgery: Present: supple, trachea midline. Absent: lymphadenopathy - Respiratory Respiratory exam: Present: CTAB. Absent: accessory muscle use, rales, rhonchi, wheezes - Cardiovascular Cardiovascular exam: Present: RRR, +S1, +S2. Absent: diastolic murmur, gallop, rubs, systolic murmur - GI/Abdominal GI/Abdominal exam: Present: normal bowel sounds, soft, no peritoneal signs. Absent: distended, tenderness - Extremities Exam Extremities exam: Present: warm, radial pulses palpable and symmetrical. Absent: calf tenderness, cyanotic, pedal edema - Neurological Exam Neurological exam: Present: CN II-XII intact, no focal deficits. Absent: pronater drift, facial droop, speech deficit - Skin Skin exam: Present: dry, erythema - Assessment and Plan (1) Sialadenitis Current Visit: No Status: Acute Assessment and plan: of left parotid gland. OSH facial CT showed sialadenitis in the left parotid gland with cellulitis. WBC 20K, lactic acid 1.8. Start Vanco, Zosyn. Consult ENT. Blood cultures pending. (2) Dysphagia Current Visit: Yes Status: Acute Assessment and plan: cont mech soft diet and nectar thick liquids per ECF Qualifiers: Dysphagia type: oral phase Qualified Code(s): R13.11 - Dysphagia, oral phase (3) Dementia Current Visit: No Status: Acute Assessment and plan: hx severe dementia. Alert to self only. Mentation appears to be at baseline. Supportive care. Qualifiers: Dementia type: unspecified type Dementia behavioral disturbance: with behavioral disturbance Qualified Code(s): F03.91 - Unspecified dementia with behavioral disturbance (4) Diabetes Current Visit: No Status: Chronic Assessment and plan: per hx. holding oral hyperglycemics. SSI. Monitor blood sugar and titrate PRN Qualifiers: Diabetes mellitus type: type 2 Diabetes mellitus penitentiary insulin use: without bed bug exterminator use Diabetes mellitus complication status: without complication Qualified Code(s): E11.9 - Type 2 diabetes mellitus without complications (5) Full code status Current Visit: Yes Status: Acute Assessment and plan: full code; unverified. No family at bedside and no CODE STATUS per ECF (6) DVT prophylaxis Current Visit: No Status: Acute Assessment and plan: heparin - Time Spent With Patient Total time spent is greater than 50% in coordination of care (as documented) at patient's floor/unit and/or counseling patient:
--- NOTE | 2018-11-11 17:21 | ENT - Consult Note ---
Date of Encounter: 11/11/18 Time of Encounter: 17:00 Assessment and Plan (1) Acute suppurative parotitis Current Visit: Yes Status: Acute [facility] patient dehydrated with left-sided acute parotitis recommending aggressive hydration mouth cleaning milking the gland regularly applying lemon juice to the duct several times daily recommending follow up on cultures and consider modifying antibiotic coverage if patient worsens should contact ENT for further assessment and evaluation History of Present Illness Consult date: 11/11/18 History of present illness: White male 83 coming in from senior care today with significant swelling in the left face white count 20,000 he has a very tense parotitis with a swollen papilla in the left oral cavity easily extruding a dark-colored prosthesis was cultured with both aerobic and anaerobic cultures he is already been placed on medications including vancomycin and Zosyn he is obviously dehydrated the mouth is very dry we recommending that he use swabs to keep the mouth is clean as possible and he is on a thickened fluid diet he probably needs some more free water and this will have to be balanced with his congestive heart failure but the more we can hydrate him the better he will respond to treatment we also discussed with the nurses that he should have the gland milked several times per day and we should put lemon juice at the papilla at least 4-6 times daily to maximize contraction of the gland and Past Med Surg Social Fam HX - Past Medical History Medical history: CHF, CVA, diabetes, hyperlipidemia, hypertension, myocardial infarction, renal disease, other Additional medical history: Rhabdomyalysis, acute kidney injury, Left Ventricular hypertrophy Psychiatric history: no psych history - Past Surgical History Additional surgical history: sub-mucous resection - Social History Smoking Status: Former smoker Smokeless Tobacco Status: No Alcohol use: none Drug use: none - Family History Father Living Status: Hx Family Cardiac Disorders: Yes (CHF) Mother Living Status: Hx Family Cardiac Disorders: Yes (CHF) Medications and Allergies Acetaminophen [Tylenol] 325 mg PO Q6HR PRN 09/27/18 [History] Cholecalciferol (Vitamin D3) [Vitamin D3] 50,000 unit PO Q2W 09/27/18 [History] Cyanocobalamin (Vitamin B-12) [Vitamin B12] 1,000 mcg PO DAILY 09/27/18 [History] Dextran 70/Hypromellose [Artificial Tears] 2 drop BOTH EYES BID 09/27/18 [History] Lidocaine Patch [Lidoderm 5% patch] 1 patch TP DAILY PRN 09/27/18 [History] Melatonin [Melatin] 3 mg PO HS 09/27/18 [History] Mirtazapine 7.5 mg PO HS 09/27/18 [History] Omeprazole [PriLOSEC] 20 mg PO DAILY 09/27/18 [History] Saline Nasal [place] [[place] Nasal [place]] 2 spray NS TID PRN 09/27/18 [History] DULoxetine [Cymbalta] 60 mg PO DAILY 10/28/18 [History] Losartan Potassium 25 mg PO DAILY 10/30/18 [History] Magnesium Hydroxide [Milk of Magnesia] 2,400 mg PO DAILY PRN 10/30/18 [History] Menthol/Zinc Oxide [Gold [place] Medicated Body Powd] 1 appl TP BID 10/30/18 [History] Menthol/Zinc Oxide [Gold [place] Medicated Body Powd] 1 appl TP DAILY PRN 10/30/18 [History] Atorvastatin [Lipitor] 40 mg PO HS tablet 10/31/18 [Rx] metFORMIN [Glucophage] 500 mg PO BID #0 10/31/18 [Rx] Ascorbate Calcium [Vitamin C] 500 mg PO BID 11/11/18 [History] Mag Hydrox/Al Hydrox/Simeth [Maalox] 30 ml PO Q8H PRN 11/11/18 [History] Allergy/AdvReac Type Severity Reaction Status Date / Time No Known Allergies Allergy Verified 10/30/18 08:49 ENT Exam Initial Vital Signs Temp Pulse Resp BP Pulse Ox 98.2 F 101 18 142/94 94 11/11/18 15:34 11/11/18 15:34 11/11/18 15:34 11/11/18 15:34 11/11/18 15:34 - General physical appearance well developed, well nourished, no distress, no pain, other (There is substantial swelling of the left side of the face). negative: moderate distress, severe distress, moderate pain, severe pain, cachectic, obese - Eyes PERRL, normal ocular movement, icteric - ENT normal pinna, normal nares, no hearing loss, no congestion, Other (The oral cavity is exceedingly dry the left puncta to the parotid duct is substantially swollen and easily excludes pus on pressure applied to the lateral side of the face). negative: decreased hearing, deviated nasal septum, nasal discharge, poor retirement, dentures, mucosal exudate, dry mucosa - Neck no masses, trachea midline, no lymphadectomy. negative: deviated trachea, diffuse goiter, limited ROM - Respiratory normal expansion, normal respiratory effort, clear to percussion, clear to auscultation Exam Initial Vital Signs Temp Pulse Resp BP Pulse Ox 98.2 F 101 18 142/94 94 11/11/18 15:34 11/11/18 15:34 11/11/18 15:34 11/11/18 15:34 11/11/18 15:34 Results - Labs All other labs normal. Consult Discharge Plan - Plan Referrals: NONE,PCP [Primary Care Provider] -
[2018-11-11] MEDS: *HR* Heparin 5,000 UNIT/ML VIAL SQ SCH (19:53)
[2018-11-11] MEDS: 0.9 % Sodium Chloride 1,000 ML IVC SCH (19:53)
[2018-11-11] MEDS: Piperacillin/Tazobactam 3.375 GM in 0.9 % Sodium Chloride Mini Bag 100 ML IVPB SCH (19:54)
[2018-11-11] MEDS: Insulin LISPRO 300 UNITS/3 ML VIAL SQ SCH ×2 (20:08→21:43)
[2018-11-12] MEDS: Piperacillin/Tazobactam 3.375 GM in 0.9 % Sodium Chloride Mini Bag 100 ML IVPB SCH ×3 (02:27→19:41)
[2018-11-12] MEDS: *HR* Heparin 5,000 UNIT/ML VIAL SQ SCH ×2 (05:18→17:55)
[2018-11-12 06:39] LABS: Hematocrit 48.1 % (37.5-50.1); Hemoglobin 15.6 g/dL (12.9-16.9); Mean Corpuscular HGB Conc 32.4 g/dL (31.6-35.5); Mean Corpuscular Hemoglobin 29.3 pg (28.0-33.3); Mean Corpuscular Volume 90.2 fL (83.0-100.0); Mean Platelet Volume 12.1 fL (9.4-12.4); Platelet Count 240 K/mcL (140-400); Red Blood Count 5.33 M/mcL (4.19-5.50); Red Cell Distribution Width 13.9 % (11.5-14.5); White Blood Count 18.4 K/mcL (4.3-11.1)
[2018-11-12 07:03] LABS: Albumin 3.3 g/dL (3.5-5.7); Albumin/Globulin Ratio 0.9 (1.1-2.2); Bilirubin,Total 0.6 mg/dL (0.3-1.0); Calcium 10.5 mg/dL (8.6-10.3); Globulin 3.7 g/dL (2.4-3.5); Potassium 4.1 mEq/L (3.5-5.1)
[2018-11-12] MEDS: Insulin LISPRO 300 UNITS/3 ML VIAL SQ SCH ×4 (09:53→20:19)
[2018-11-12 12:38] LABS: Acinetobacter baumannii by PCR Not Detected (Not Detect); Enterobacter cloacae Cmplx PCR Not Detected (Not Detect); Enterobacteriaceae by PCR Not Detected (Not Detect); Enterococcus by PCR Not Detected (Not Detect); Escherichia coli by PCR Not Detected (Not Detect); Klebsiella oxytoca by PCR Not Detected (Not Detect); Staphylococcus aureus by PCR DETECTED (Not Detect); Staphylococcus by PCR DETECTED (Not Detect); Streptococcus agalactiae(B)PCR Not Detected (Not Detect); Streptococcus by PCR Not Detected (Not Detect); Streptococcus pneumoniae PCR Not Detected (Not Detect); Streptococcus pyogenes (A) PCR Not Detected (Not Detect); mecA Methicillin-Resist Gene DETECTED (Not Detect)
[2018-11-12 12:39] LABS: Candida albicans by PCR Not Detected (Not Detect); Candida glabrata by PCR Not Detected (Not Detect); Candida krusei by PCR Not Detected (Not Detect); Candida parapsilosis by PCR Not Detected (Not Detect); Candida tropicalis by PCR Not Detected (Not Detect); Klebsiella pneumoniae by PCR Not Detected (Not Detect); Proteus by PCR Not Detected (Not Detect); Pseudomonas aeruginosa by PCR Not Detected (Not Detect); Serratia marcescens by PCR Not Detected (Not Detect)
[2018-11-12] MEDS: 0.9 % Sodium Chloride 1,000 ML IVC SCH ×2 (12:59→13:30)
--- NOTE | 2018-11-12 13:12 | Internal Med Progress Note ---
Hospitalist Progress Note - Encounter Date of Encounter: 11/12/18 Time of Encounter: 13:10 - Subjective Interval History: Mr. Melara is a 83 year old male with PMH diabetes, CVA and dementia with chronic Giraldo presented to OSH on 11/11/18 with complaints of facial cellulitis. He was found to have sialadenitis in the left parotid gland therefore he was tr ansferred to [facility] for IV ATB and ENT evaluation. Patient is alert, confused, afebrile. he does not know why he is here, trying to get out of bed. He still has significant left facial swelling with tenderness from parotitis - Exam Vitals: Temp Pulse Resp BP Pulse Ox 98.6 F 96 14 144/96 93 11/12/18 10:42 11/12/18 10:42 11/12/18 10:42 11/12/18 10:42 11/12/18 10:42 Exam: . CONSTITUTIONAL: patient appears as an age appropriate male in no acute distress. EYES Clear sclerae, bilateral pupils are equal, reactive to light. EMOI. RESPIRATORY: No accessory muscle use, bilateral clear to auscultation, no wheezing, no crackles/rales. CARDIOVASCULAR: Regular heart rate, normal S1 and S2, no murmurs GASTROINTESTINAL: bowel sounds present, soft, no tenderness. MUSCULOSKELETAL: Joints in normal range of motion, no clubbing, no edema, no cyanosis. Bilateral peripheral pulses 2+. NEUROLOGIC: CN II to XII are grossly intact, no focal neurological deficit. DVT Prophylaxis: Heparin subcutaneous - Summary of Assessment and Plan Summary of Assessment and Plan: Mr. Melara is a 83 year old male with PMH diabetes, CVA and dementia with chronic Giraldo presented to OSH on 11/11/18 with complaints of facial cellulitis. He was found to have sialadenitis in the left parotid gland therefore he was transferred to [facility] for IV ATB and ENT evaluation. Patient is alert, confused, afebrile. he does not know why he is here, trying to get out of bed. He still has significant left facial swelling with tenderness from parotitis (1) Acute suppurative parotitis Current Visit: Yes Status: Acute apprecuite ENT consult, aggressive hydration, mouth cleaning milking the gland regularly applying lemon juice to the duct several times daily recommending follow up on cultures and consider modifying antibiotic coverage if patient worsens should contact ENT for further assessment and evaluation conitnue iV vancomycin and zosyn (2) possible sepsis from parotits with WBC 18K, HR95 Current Visit: Yes Status: Acute Assessment and plan: (3) Dementia Current Visit: No Status: Acute Assessment and plan: hx severe dementia. Alert to self only. Mentation appears to be at baseline. Supportive care. Qualifiers: Dementia type: unspecified type Dementia behavioral disturbance: with behavioral disturbance Qualified Code(s): F03.91 - Unspecified dementia with behavioral disturbance (4) Diabetes Current Visit: No Status: Chronic Assessment and plan: per hx. holding oral hyperglycemics. SSI. Monitor blood sugar and titrate PRN Qualifiers: Diabetes mellitus type: type 2 Diabetes mellitus care home insulin use: without care home use Diabetes mellitus complication status: without comp lication Qualified Code(s): E11.9 - Type 2 diabetes mellitus without comp lications (5) SHANNON in CKD III, Cr trending up, will conitnue IVF (6) Dysphagia Current Visit: Yes Status: Acute Assessment and plan: cont mech soft diet and nectar thick liquids per ECF Qualifiers: Dysphagia type: oral phase Qualified Code(s): R13.11 - Dysphagia, oral phase (7) DVT prophylaxis Current Visit: No Status: Acute Assessment and plan: heparin - Time Spent with Patient Total time spent is greater than 50% in coordination of care (as documented) at patient's floor/unit and/or counseling patient: Greater than 35 minutes Plan of Care Discussed with: patient Internal Medicine: Result - Labs CBC & Chem 7: 11/12/18 05:51 11/12/18 05:51 Labs: Short CBC 11/12/18 Range/Units 05:51 WBC 18.4 H (4.3-11.1) K/mcL Hgb 15.6 (12.9-16.9) g/dL Hct 48.1 (37.5-50.1) % Plt Count 240 (140-400) K/mcL BMP 11/12/18 05:51 Sodium 144 Potassium 4.1 Chloride 108 H Carbon Dioxide 25 BUN 46 H Creatinine 1.46 H Glucose 210 H Calcium 10.5 H Liver Function 11/12/18 Range/Units 05:51 Total Bilirubin 0.6 (0.3-1.0) mg/dL AST 8 L (13-39) Units/L ALT 3 L (7-52) Units/L Alkaline Phosphatase 79 (34-104) Units/L Albumin 3.3 L (3.5-5.7) g/dL Consult Discharge Plan - Plan Referrals: NONE,PCP [Primary Care Provider] -
[2018-11-12] MEDS: Cholecalciferol (D-3) 1,000 UNIT TABLET PO SCH (17:55)
[2018-11-12] MEDS: Mirtazapine 15 MG TABLET PO SCH (20:12)
[2018-11-13] MEDS: Piperacillin/Tazobactam 3.375 GM in 0.9 % Sodium Chloride Mini Bag 100 ML IVPB SCH ×3 (02:33→19:00)
[2018-11-13] MEDS: 0.9 % Sodium Chloride 1,000 ML IVC SCH ×2 (02:39→17:33)
[2018-11-13] MEDS: *HR* Heparin 5,000 UNIT/ML VIAL SQ SCH ×2 (05:50→17:35)
[2018-11-13 06:26] LABS: Basophils % 0.2 %; Eosinophils # 0.1 K/mcL (0.0-0.6); Eosinophils % 0.9 %; Hematocrit 46.6 % (37.5-50.1); Hemoglobin 14.5 g/dL (12.9-16.9); Immature Granulocytes % 0.2 % (0-4); Lymphocytes # 1.7 K/mcL (0.6-4.6); Lymphocytes % 15.1 %; Mean Corpuscular HGB Conc 31.1 g/dL (31.6-35.5); Mean Corpuscular Hemoglobin 29.4 pg (28.0-33.3); Mean Corpuscular Volume 94.5 fL (83.0-100.0); Mean Platelet Volume 11.5 fL (9.4-12.4); Monocytes # 0.8 K/mcL (0.0-1.3); Neutrophils # 8.6 K/mcL (1.6-8.9); Platelet Count 238 K/mcL (140-400); Red Blood Count 4.93 M/mcL (4.19-5.50); Red Cell Distribution Width 14.1 % (11.5-14.5); Segmented Neutrophils % 76.6 %; White Blood Count 11.2 K/mcL (4.3-11.1)
[2018-11-13 06:47] LABS: Calcium 10.4 mg/dL (8.6-10.3)
[2018-11-13] MEDS: Insulin LISPRO 300 UNITS/3 ML VIAL SQ SCH ×5 (09:12→21:30)
[2018-11-13] MEDS: Cholecalciferol (D-3) 1,000 UNIT TABLET PO SCH (11:29)
[2018-11-13] MEDS: traMADol 50 MG TABLET PO PRN (12:24)
[2018-11-13] MEDS ORDERED: Haloperidol Lactate 5 MG/ML VIAL IVP ONE (13:53)
--- NOTE | 2018-11-13 17:16 | Internal Med Progress Note ---
Hospitalist Progress Note - Encounter Date of Encounter: 11/13/18 Time of Encounter: 17:14 - Subjective Interval History: I have seen and evaluated the patient at bedside. patient reports pain on the left side of his face. denies chest pain, nausea, vomiting or shortness of breath. reports not feeling comfortable in the bed. - Exam Vitals: Temp Pulse Resp BP Pulse Ox 98.0 F 86 18 146/84 95 11/13/18 11:18 11/13/18 11:18 11/13/18 11:18 11/13/18 11:18 11/13/18 11:18 Exam: Vitals: Reviewed General: Alert and oriented x3. In mild distress due to left parotid enlargement. discomfort HEENT: EOM, pupils equal, round and reactive. left parotid enlargement Cardiovascular: RRR, normal S1 & S2, no rubs, murmurs or gallops. Lungs: CTA b/l, no wheezes or crackles. Abdomen: Obese, soft, non-tender, no rigidity. Extremities: No edema Neurological: No focal neurological deficits Rest of the physical exam is non contributory - Assessment and Plan (1) Acute suppurative parotitis Current Visit: Yes Status: Acute Assessment and Plan: Parotid gland wound culture growing: gram positive cocci, sensitivity and specificity to follow. ENT consulted patient is on vancomycin per pharmacy protocol and piperacillin/tazobactam 3.375mg/IV Q8HRs ID consulted for antibiotics management. (2) Diabetes Current Visit: No Status: Chronic Assessment and Plan: Blood sugar was well-controlled on the lispro low-dose sliding scale. (3) Dementia Current Visit: No Status: Chronic Assessment and Plan: Patient is on mirtazapine 7.5 mg by mouth at bedtime. Haldo 1mg/IV once ordered for agitation (4) Dysphagia Current Visit: Yes Status: Chronic (5) Hypertension Current Visit: No Status: Chronic Assessment and Plan: Blood pressures well controlled. Continue losartan 25 mg by mouth daily. (6) Bacteremia Current Visit: Yes Status: Acute Assessment and Plan: blood culture: gram positive cocci. on vanco per pharmacy protocol TTE ordered repeat blood culture ID consulted for antibiotics management. (7) Dehydration Current Visit: Yes Status: Acute Assessment and Plan: continue gentle IV fluids hydration. DVT Prophylaxis: On heparin subQ - Summary of Assessment and Plan Summary of Assessment and Plan: patient to remain in the hospital due to Bacteremia - Time Spent with Patient Total time spent is greater than 50% in coordination of care (as documented) at patient's floor/unit and/or counseling patient: Greater than 35 minutes (40) Plan of Care Discussed with: nurse Internal Medicine: Result - Labs CBC & Chem 7: 11/13/18 06:04 11/13/18 06:04 Labs: Short CBC 11/13/18 Range/Units 06:04 WBC 11.2 H (4.3-11.1) K/mcL Hgb 14.5 (12.9-16.9) g/dL Hct 46.6 (37.5-50.1) % Plt Count 238 (140-400) K/mcL Neutrophils # 8.6 (1.6-8.9) K/mcL BMP 11/13/18 06:04 Sodium 149 H Potassium 4.0 Chloride 114 H Carbon Dioxide 27 BUN 40 H Creatinine 1.42 H Glucose 172 H Calcium 10.4 H Consult Discharge Plan - Plan Referrals: NONE,PCP [Primary Care Provider] - (2) Diabetes Qualifiers: Diabetes mellitus type: type 2 Diabetes mellitus detention insulin use: without detention use Diabetes mellitus complication status: without co mplication Qualified Code(s): E11.9 - Type 2 diabetes mellitus without com plications (3) Dementia Qualifiers: Dementia type: unspecified type Dementia behavioral disturbance: with behavioral disturbance Qualified Code(s): F03.91 - Unspecified dementia with behavioral disturbance (4) Dysphagia Qualifiers: Dysphagia type: oral phase Qualified Code(s): R13.11 - Dysphagia, oral phase (5) Hypertension Qualifiers: Hypertension type: essential hypertension Qualified Code(s): I10 - Essential (primary) hypertension
[2018-11-13] MEDS: *HR* HYDROcodone/Acet 5/325 mg TABLET PO PRN (18:23)
[2018-11-13] MEDS ORDERED: Perflutren Lipid Microsphere 1.3 ML in 0.9 % Sodium Chloride 8.7 ML IVP ONE (20:09)
[2018-11-13] MEDS: Mirtazapine 15 MG TABLET PO SCH (21:24)
[2018-11-13] MEDS: Melatonin 3 MG TABLET PO SCH (21:25)
[2018-11-14] MEDS: Piperacillin/Tazobactam 3.375 GM in 0.9 % Sodium Chloride Mini Bag 100 ML IVPB SCH ×2 (02:10→12:47)
[2018-11-14] MEDS: *HR* Heparin 5,000 UNIT/ML VIAL SQ SCH ×2 (05:32→17:52)
[2018-11-14] MEDS: 0.9 % Sodium Chloride 1,000 ML IVC SCH (06:39)
[2018-11-14 06:54] LABS: Basophils % 0.2 %; Eosinophils # 0.2 K/mcL (0.0-0.6); Eosinophils % 2.1 %; Hematocrit 47.7 % (37.5-50.1); Hemoglobin 14.7 g/dL (12.9-16.9); Immature Granulocytes % 0.4 % (0-4); Lymphocytes # 1.5 K/mcL (0.6-4.6); Lymphocytes % 18.3 %; Mean Corpuscular HGB Conc 30.8 g/dL (31.6-35.5); Mean Corpuscular Hemoglobin 28.7 pg (28.0-33.3); Mean Corpuscular Volume 93.2 fL (83.0-100.0); Mean Platelet Volume 11.6 fL (9.4-12.4); Monocytes # 0.5 K/mcL (0.0-1.3); Monocytes % 6.6 %; Neutrophils # 5.9 K/mcL (1.6-8.9); Platelet Count 242 K/mcL (140-400); Red Blood Count 5.12 M/mcL (4.19-5.50); Red Cell Distribution Width 13.9 % (11.5-14.5); Segmented Neutrophils % 72.4 %; White Blood Count 8.1 K/mcL (4.3-11.1)
[2018-11-14 07:16] LABS: BUN/Creatinine Ratio 25 (6-26); Blood Urea Nitrogen 32 mg/dL (8-23); Carbon Dioxide 25 mEq/L (23-29); Chloride 117 mEq/L (98-107); Glucose 175 mg/dL (70-105); Osmolality,Calculated 325 (280-300); Phosphorous 2.6 mg/dL (2.7-4.5); Potassium 3.9 mEq/L (3.5-5.1); Sodium 152 mEq/L (136-145); eGFR For African Americans > 60 (> 60); eGFR For Non-African Americans 55 (> 60)
--- NOTE | 2018-11-14 08:19 | Internal Med Progress Note ---
Hospitalist Progress Note - Encounter Date of Encounter: 11/14/18 Time of Encounter: 08:16 - Subjective Interval History: I have seen and evaluated the patient at bedside. patient more calm today. patient in no distress but reports still having some pain with swallowing. denies chest pain, nausea, vomiting or abdominal pain. - Exam Vitals: Temp Pulse Resp BP Pulse Ox 98.0 F 90 15 143/99 94 11/14/18 08:00 11/14/18 08:00 11/14/18 08:00 11/14/18 08:00 11/14/18 08:00 Exam: Vitals: Reviewed General: Alert and oriented x3. in no distress HEENT: Left parotid enlargement Cardiovascular: RRR, normal S1 & S2, no rubs, murmurs or gallops. Lungs: CTA b/l, no wheezes or crackles. Abdomen: Obese, soft, non-tender, no rigidity. NABS in all 4 quadrants Extremities: No edema Neurological: No focal neurological deficits Rest of the physical exam is non contributory - Assessment and Plan (1) Bacteremia Current Visit: Yes Status: Acute Assessment and Plan: Blood cultures 11/11/18: 1 bottle, gram positive cocci. possible MRSA, as abscess fluid culture, grew MRSA. repeated Blood culture : no growth to date will continue vancomycin per pharmacy protocol on Piperacillin/tazobactam 3.375mg/IV Q8HRs ID consulted for antibiotics management. TTE, no vegetation, will discuss with ID the need for possible ALFONSO as source of infection is believed to be the parathyroid infection. (2) Acute suppurative parotitis Current Visit: Yes Status: Acute Assessment and Plan: Parotid gland wound culture growing: MRSA Plan continue vancomycin per pharmacy protocol ENT involved in care ID consulted recommendations appreciated continue IV hydration DC 0.9%NS started on 0.45%NS @75 ml/hr x1 bag (3) Diabetes Current Visit: No Status: Chronic Assessment and Plan: Blood sugar is well controlled. Patient is on lispro low-dose sliding scale before meals. Levemir 5 unit at bedtime added. (4) Dementia Current Visit: No Status: Chronic Assessment and Plan: Plan continue mirtazapine 7.5 mg by mouth at bedtime. (5) Dysphagia Current Visit: Yes Status: Chronic Assessment and Plan: possible due to parotiditis. speech evaluation ordered (6) Hypertension Current Visit: No Status: Chronic Assessment and Plan: Blood pressure is well controlled. Continue losartan 25 mg by mouth daily. (7) Dehydration Current Visit: Yes Status: Acute Assessment and Plan: will continue gentle hydration with 0.45NS @75 ml/hr x1 more litter of fluid. (8) SHANNON (acute kidney injury) Current Visit: Yes Status: Acute (9) Hypophosphatemia Current Visit: Yes Status: Acute Assessment and Plan: electrolyte being replaced. will repeat phosp level tomorrow morning (10) Hypernatremia Current Visit: Yes Status: Acute Assessment and Plan: Iv fluids adjusted. will re-assess Na level tomorrow morning. (11) Sepsis Current Visit: Yes Status: Suspected Assessment and Plan: SIRS. patient does not meet sepsis criteria. DVT Prophylaxis: Patient is on heparin subcutaneous. - Summary of Assessment and Plan Summary of Assessment and Plan: Patient to remain in the hospital due to bacteremia, on broad-spectrum IV antibiotics. Pending blood culture sensitivity and specificity. - Time Spent with Patient Total time spent is greater than 50% in coordination of care (as documented) at patient's floor/unit and/or counseling patient: Greater than 35 minutes (40) Plan of Care Discussed with: patient (and the nurse) Internal Medicine: Result - Labs CBC & Chem 7: 11/14/18 05:52 11/14/18 05:52 Labs: Short CBC 11/14/18 Range/Units 05:52 WBC 8.1 (4.3-11.1) K/mcL Hgb 14.7 (12.9-16.9) g/dL Hct 47.7 (37.5-50.1) % Plt Count 242 (140-400) K/mcL Neutrophils # 5.9 (1.6-8.9) K/mcL BMP 11/14/18 05:52 Sodium 152 H Potassium 3.9 Chloride 117 H Carbon Dioxide 25 BUN 32 H Creatinine 1.26 Glucose 175 H Calcium 10.0 - Impressions Impressions Echocardiogram 11/13/18 17:12 Impressions: Technically sub-optimal due to poor echocardiographic windows. LVEF 55-60%. The right ventricle was not well visualized No evidence of pulmonary hypertension. There is a small pericardial effusion present.There is no echocardiographic evidence of tamponade. The valves were not well visualized in this study. Consider ALFONSO if there is clinical suspicion for infective endocarditis Left Ventricular Wall Motion: Rest Echo Findings The mid inferior lateral wall was not visualized. All other wall segments showed normal motion. Findings: Study Quality * Technically sub-optimal due to poor echocardiographic windows. ECG Findings * Sinus tachycardia. Left Ventricle * LVEF 55-60%. * Unable to evaluate segmental wall motion due to technical quality. * Indeterminate diastolic function. * Definity echo contrast was used. Right Ventricle * The right ventricle was not well visualized Left Atrium * Normal left atrial size. Right Atrium * Normal right atrial size. Pericardium * There is a small pericardial effusion present.There is no echocardiographic evidence of tamponade. * IVC * Normal IVC dimensions and inspiratory collapse. Pulmonary Artery * Pulmonary artery not well visualized. Aortic Valve * Aortic valve not well visualized. * No aortic stenosis. * Trace aortic regurgitation. Mitral Valve * Mitral valve not well visualized. Tricuspid Valve * Tricuspid valve not well visualized. * No evidence of pulmonary hypertension. Pulmonic Valve * Pulmonic valve not well visualized. Aorta * Normally sized aortic root. 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 Diabetes mellitus complication status: without complication Qualified Code(s): E11.9 - Type 2 diabetes mellitus without complications (4) Dementia Qualifiers: Dementia type: unspecified type Dementia behavioral disturbance: with behavioral disturbance Qualified Code(s): F03.91 - Unspecified dementia with behavioral disturbance (5) Dysphagia Qualifiers: Dysphagia type: oral phase Qualified Code(s): R13.11 - Dysphagia, oral phase (6) Hypertension Qualifiers: Hypertension type: essential hypertension Qualified Code(s): I10 - Essential (primary) hypertension (11) Sepsis Qualifiers: Sepsis type: sepsis due to unspecified organism Qualified Code(s): A41.9 - Sepsis, unspecified organism
--- NOTE | 2018-11-14 08:41 | Infectious Disease Consult ---
Infectious Disease-Consult - Encounter Date/Time Date of Encounter: 11/14/18 Time of Encounter: 09:29 - Data of Consult Patient: new to practice Reason for consult: GPC Bacteremia Consult date: 11/14/18 Requesting Physician: Michelet Mariscal MD Primary Care Provider: PCP NONE - HPI HPI: Mr. Melara is an 83-year-old gentleman who presented from an ECF due to left facial swelling and concern for facial cellulitis as well as sialadenitis of the left parotid gland as demonstrated on CT scan. Infectious disease was consulted on 11/14/18 due to gram-positive bacteremia. In short, Mr. Melara an 83-year-old gentleman with history of CVA, CHF, dementia, diabetes, hyperlipidemia, hypertension, myocardial infarction, renal disease who presented to the hospital with left-sided parotitis as confirmed by facial CT on 11/11/18. The patient does have baseline dementia and is poorly communicative at baseline. At time of admission, the patient did have evidence of sepsis including elevated leukocytosis, tachycardia, evidence of infection with parotitis. In addition of this he also had evidence of end organ damage with acute kidney injury including a serum creatinine of 1.46 where demonstrated baseline appears to be around 1.0. At time of admission, the patient did have labs that showed a white blood cell count of 18.4, serum creatinine 1.46, and apparently had significant edema the left parotid gland. The patient had blood cultures which demonstrated PCR positivity for staph aureus with Mec-A gene. ENT saw this patient and recommended manual milking of the gland. The patient was started on IV vancomycin and Zosyn. Since that time, the patient has had positive wound cultures for MRSA as well. The patient has had a transthoracic echocardiogram which had poor visualization of the valves. The patient's vitals have largely stabilized. He has remained afebrile, however continues to demonstrate tachycardia. Repeat blood cultures on 11/13/18 show NGTD x2. - ROS Review of Systems: Review of systems cannot be completed due to mental status - Results CBC & Chem 7: 11/15/18 02:59 11/15/18 02:59 - Exam Vitals: Temp Pulse Resp BP Pulse Ox 98.0 F 90 15 143/99 94 11/14/18 08:00 11/14/18 08:00 11/14/18 08:00 11/14/18 08:00 11/14/18 08:00 Exam: Patient is uncooperative with physical exam. He states that he has pain everywhere I touch. It is unclear whether he is actually having pain. He answers every question with n Gen: Vitals noted. No acute distress. Patient is agitated and confused. Eyes: anicteric sclerae, moist conjunctivae; No conjunctival hemomorhage HENT: Atraumatic; Left facial swelling, no obvious erythema or drainage is noted, however patient is uncooperative with internal oral exam. There is tenderness noted on external palpation. Neck: Trachea midline; supple, no thyromegaly or lymphadenopathy Cardiac: RRR, no murmur, +S1/S2 Pulmonary: CTA bilaterally, no wheezes, rales or rhonchi, equal chest expansion Abdomen: soft, nontender, no guarding. No masses or hepatosplenomegaly MSK: ROM intact, no joint swelling noted Extremities: no BLE edema, nontender calf, no cyanosis or clubbing Skin: Normal temperature, turgor and texture; no rash, ulcers or subcutaneous nodules. No stigmata of infective endocarditis Neuro: Poorly communicative. Cannoy answer questions appropriately, does respond to commands. moves all extremities, no focal deficits. Psych: Agitated, confused. AxOx1 (alert and oriented to person.) Acetaminophen [Tylenol] 325 mg PO Q6HR PRN 09/27/18 [History] Cholecalciferol (Vitamin D3) [Vitamin D3] 50,000 unit PO Q2W 09/27/18 [History] Cyanocobalamin (Vitamin B-12) [Vitamin B12] 1,000 mcg PO DAILY 09/27/18 [History] Dextran 70/Hypromellose [Artificial Tears] 2 drop BOTH EYES BID 09/27/18 [History] Lidocaine Patch [Lidoderm 5% patch] 1 patch TP DAILY PRN 09/27/18 [History] Melatonin [Melatin] 3 mg PO QPM 09/27/18 [History] Mirtazapine 7.5 mg PO HS 09/27/18 [History] Omeprazole [PriLOSEC] 20 mg PO DAILY 09/27/18 [History] Saline Nasal [place] [[place]a Nasal [place]] 2 spray NS TID PRN 09/27/18 [History] Losartan Potassium 25 mg PO DAILY 10/30/18 [History] Magnesium Hydroxide [Milk of Magnesia] 2,400 mg PO DAILY PRN 10/30/18 [History] Atorvastatin [Lipitor] 40 mg PO HS tablet 10/31/18 [Rx] metFORMIN [Glucophage] 500 mg PO BID #0 10/31/18 [Rx] Ascorbate Calcium [Vitamin C] 500 mg PO BID 11/11/18 [History] Aspirin [Adult Aspirin Regimen] 81 mg PO DAILY 11/13/18 [History] Bisacodyl [Gentle Laxative] 10 mg RC DAILY PRN 11/13/18 [History] Duloxetine HCl [Cymbalta] 60 mg PO DAILY 11/13/18 [History] HYDROcodone/Acet 5/325 mg [[place] 5-325 mg] 0.5 tab PO Q4H 11/13/18 [History] HYDROcodone/Acet 5/325 mg [[place] 5-325 mg] 0.5 tab PO Q4H PRN 11/13/18 [History] Non-Formulary Medication 32 ml PO Q8H PRN 11/13/18 [History] Allergy/AdvReac Type Severity Reaction Status Date / Time No Known Allergies Allergy Verified 11/13/18 10:38 - Assessment and Plan (1) Sepsis Current Visit: Yes Status: Acute Severe Sepsis secondary to MRSA bacteremia and acute suppurative parotitis. Resolved SIRS Criteria on admission: HR 101, WBC 18.4. Causative agent: MRSA bacteremia. Patient presented with left acute suppurative parotitis as evidenced by CT study and abscess drainage positive for MRSA End organ damage noted on admission, SHANNON with serum creatinine 1.47, baseline 0.8-1.0 TTE 11/13/18 Demonstrates no evidence for new valvular regurgitation, valves not well visualized Evaluated by ENT, recommended IV abx, hydration PO, milking the gland and applying lemon juice Gloria criteria: 1 Major, 0 Minor. Highly unlikely infective endocarditis Cultures 11/13/18 Blood cultures NGTD x2 11/11/18 Wound culture positive, MRSA resistant to cipro, levaquin, erythromycin 11/11/18 Wound anaerobic culture NGTD 11/11/18 Blood culture positive, MRSA x1, resistant cipro, levaquin, erythromycin Abx Vancomycin day 3 Zosyn Day 3 Recommendations -Continue IV Vancomycin -will require 14d course total, as this is uncomplicated. Patient has no hardware, no valve replacements -Goal trough 15-20 -Place PICC 48h following first negative blood culture -Gloria criteria: 1 Major, 0 Minor. Highly unlikely infective endocarditis. As such, no need to pursue ALFONSO at this time unless clinical course becomes complicated -Check Rheumatoid factor in AM Qualifiers: Sepsis type: methicillin resistant Staphylococcus aureus Qualified Code(s): A41.02 - Sepsis due to Methicillin resistant Staphylococcus aureus SNOMED Code(s): 90355120 (2) Bacteremia Current Visit: Yes Status: Acute MRSA bacteremia, likely etiology parotitis It is unlikely that this is related to an infective endocarditis as the patient does not have significant risk factors There are also no significant physical exam findings Gloria criteria are not met Treatment as above SNOMED Code(s): 6032831 (3) Acute suppurative parotitis Current Visit: Yes Status: Acute Causative agent: MRSA Treatment with manual milking of gland per ENT, continue IV Vancomycin SNOMED Code(s): 26117616 (4) SHANNON (acute kidney injury) Current Visit: Yes Status: Acute Acute kidney injury on chronic renal disease according to patient's medical his tory The patient did present with worsened acute kidney injury which has improved dramatically He does still appear to have dehydration according to labs Recommend adequate hydration per primary team SNOMED Code(s): 69633346, 51394673 (5) Hypernatremia Current Visit: Yes Status: Acute Hypernatremia, sodium 153 Although patient's mental status is poor, according to the patient's nurse this appears to be chronic Uncertain whether or not sodium has a role in this Management per primary team SNOMED Code(s): 801968247 (6) Dehydration Current Visit: Yes Status: Acute SNOMED Code(s): 51774450 (7) Diabetes Current Visit: No Status: Chronic Management per primary team Qualifiers: Diabetes mellitus type: type 2 Diabetes mellitus fci insulin use: without fci use Diabetes mellitus complication status: without com plication Qualified Code(s): E11.9 - Type 2 diabetes mellitus without com plications SNOMED Code(s): 66066598 (8) Dementia Current Visit: No Status: Chronic Dementia which is chronic Patient may be at his baseline mental status Qualifiers: Dementia type: unspecified type Dementia behavioral disturbance: with behavioral disturbance Qualified Code(s): F03.91 - Unspecified dementia with behavioral disturbance SNOMED Code(s): 47634456 Past Med Surg Social Fam HX - Past Medical History Medical history: CHF, CVA, diabetes, hyperlipidemia, hypertension, myocardial infarction, renal disease, other Additional medical history: Rhabdomyalysis, acute kidney injury, Left Ventricular hypertrophy Psychiatric history: no psych history - Past Surgical History Additional surgical history: sub-mucous resection - Social History Smoking Status: Former smoker Smokeless Tobacco Status: No Alcohol use: none Drug use: none - Family History Father Living Status: Hx Family Cardiac Disorders: Yes (CHF) Mother Living Status: Hx Family Cardiac Disorders: Yes (CHF) Consult Discharge Plan - Plan Referrals: NONE,PCP [Primary Care Provider] - - Attending Attestation I examined this patient and my medical decision-making was reviewed with the Resident Physician. I agree with the documented findings, disposition and treatment plan as described except to the extent set forth below. This is an addendum to original report dictated by resident physician. Please refer to resident's note for full detail. Patient is an 83-year-old gentleman with past medical history mentioned below presented with parotiditis with MRSA and MRSA bacteremia. Patient on admission was noted to be septic with tachycardia and leukocytosis. We were asked to evaluate the patient and make further recommendations. Agree with above physical exam findings and review of system. No endocarditis stigmata noted. No scars signifying hardware noted. Assessment and plan: Sepsis MRSA bacteremia likely source parotitis Parotitis with MRSA appreciate ENT input Acute kidney injury likely secondary to sepsis improved Diabetes mellitus type 2 Dementia Recommendations Continue vancomycin with goal vancomycin trough around 15 May DC Zosyn Duration of treatment 14 days from first negative culture I understand the TTE was negative but I have a low index suspicion for endocarditis so I will not do a ALFONSO
[2018-11-14] MEDS: Cholecalciferol (D-3) 1,000 UNIT TABLET PO SCH (09:43)
[2018-11-14] MEDS: Insulin LISPRO 300 UNITS/3 ML VIAL SQ SCH ×3 (10:38→17:52)
[2018-11-14] MEDS: Melatonin 3 MG TABLET PO SCH (20:14)
[2018-11-14] MEDS: Mirtazapine 15 MG TABLET PO SCH (20:14)
[2018-11-14] MEDS: Insulin DETEMIR 100 UNIT/ML X5UNITS SQ SCH (20:19)
[2018-11-15 04:09] LABS: Basophils % 0.3 %; Eosinophils # 0.4 K/mcL (0.0-0.6); Eosinophils % 5.5 %; Hematocrit 43.6 % (37.5-50.1); Hemoglobin 13.4 g/dL (12.9-16.9); Immature Granulocytes % 0.4 % (0-4); Lymphocytes # 2.5 K/mcL (0.6-4.6); Lymphocytes % 30.7 %; Mean Corpuscular HGB Conc 30.7 g/dL (31.6-35.5); Mean Corpuscular Hemoglobin 28.8 pg (28.0-33.3); Mean Corpuscular Volume 93.8 fL (83.0-100.0); Mean Platelet Volume 11.7 fL (9.4-12.4); Monocytes # 0.7 K/mcL (0.0-1.3); Monocytes % 8.5 %; Neutrophils # 4.4 K/mcL (1.6-8.9); Platelet Count 216 K/mcL (140-400); Red Blood Count 4.65 M/mcL (4.19-5.50); Segmented Neutrophils % 54.6 %
[2018-11-15 04:31] LABS: BUN/Creatinine Ratio 23 (6-26); Blood Urea Nitrogen 27 mg/dL (8-23); Calcium 9.4 mg/dL (8.6-10.3); Carbon Dioxide 25 mEq/L (23-29); Chloride 121 mEq/L (98-107); Glucose 125 mg/dL (70-105); Magnesium 1.9 mg/dL (1.6-2.6); Osmolality,Calculated 321 (280-300); Phosphorous 2.3 mg/dL (2.7-4.5); Potassium 3.6 mEq/L (3.5-5.1); Sodium 152 mEq/L (136-145); eGFR For African Americans > 60 (> 60); eGFR For Non-African Americans 60 (> 60)
[2018-11-15] MEDS: *HR* Heparin 5,000 UNIT/ML VIAL SQ SCH ×2 (05:15→18:11)
[2018-11-15] MEDS: *HR* HYDROcodone/Acet 5/325 mg TABLET PO PRN (05:20)
[2018-11-15] MEDS: Insulin LISPRO 300 UNITS/3 ML VIAL SQ SCH ×3 (07:31→18:10)
[2018-11-15] MEDS: Cholecalciferol (D-3) 1,000 UNIT TABLET PO SCH (08:18)
--- NOTE | 2018-11-15 08:38 | Infectious Disease Progress No ---
ID Progress Note Date of Encounter: 11/15/18 Time of Encounter: 09:25 - Subjective Subjective: The patient is resting in bed at time of examination. His mental status does appear to be better than it was previously. He still has no acute complaints today, however he does say that he has pain all over his body when asked which appears to be chronic. - Objective CBC & Chem 7: 11/15/18 02:59 11/15/18 02:59 - Exam Vitals: Temp Pulse Resp BP Pulse Ox 98.3 F 87 15 153/93 94 11/15/18 07:15 11/15/18 07:15 11/15/18 07:15 11/15/18 07:15 11/15/18 07:15 Exam: Patient is uncooperative with physical exam. He states that he has pain everywhere I touch. It is unclear whether he is actually having pain. He answers every question with no Gen: Vitals noted. No acute distress. Patient is agitated and confused. Eyes: anicteric sclerae, moist conjunctivae; No conjunctival hemomorhage HENT: Atraumatic; Left facial swelling, no obvious erythema or drainage is noted. There does appear to be an opening on internal oral exam of left buccal surface with erythema surrounding but no drainage. There is tenderness noted on external palpation. Neck: Trachea midline; supple, no thyromegaly or lymphadenopathy Cardiac: RRR, no murmur, +S1/S2 Pulmonary: CTA bilaterally, no wheezes, rales or rhonchi, equal chest expansion Abdomen: soft, nontender, no guarding. No masses or hepatosplenomegaly MSK: ROM intact, no joint swelling noted Extremities: no BLE edema, nontender calf, no cyanosis or clubbing Skin: Normal temperature, turgor and texture; no rash, ulcers or subcutaneous nodules. No stigmata of infective endocarditis Neuro: Poorly communicative. Cannoy answer questions appropriately, does respond to commands. moves all extremities, no focal deficits. Psych: Agitated, confused. AxOx1 (alert and oriented to person.) - Assessment and Plan (1) Sepsis Current Visit: Yes Status: Ruled-out Severe Sepsis secondary to MRSA bacteremia and acute suppurative parotitis. Resolved SIRS Criteria on admission: HR 101, WBC 18.4. Causative agent: MRSA bacteremia. Patient presented with left acute suppurative parotitis as evidenced by CT study and abscess drainage positive for MRSA End organ damage noted on admission, SHANNON with serum creatinine 1.47, baseline 0. 8-1.0 TTE 11/13/18 Demonstrates no evidence for new valvular regurgitation, valves not well visualized Evaluated by ENT, recommended IV abx, hydration PO, milking the gland and applying lemon juice Gloria criteria: 1 Major, 1 Minor. Do not highly suspect infective endocarditis, however it is possible even if not highly likely Cultures 11/13/18 Blood cultures NGTD x2 11/11/18 Wound culture positive, MRSA resistant to cipro, levaquin, erythromycin 11/11/18 Wound anaerobic culture NGTD 11/11/18 Blood culture positive, MRSA x1, resistant cipro, levaquin, erythromycin Abx Vancomycin day 4 Zosyn Day 4 Recommendations -Continue IV Vancomycin -will require 14d course total, as this is uncomplicated. Patient has no hardware, no valve replacements -Goal trough 15-20 -Place PICC 48h following first negative blood culture -Gloria criteria: 1 Major, 1 Minor. Possibly infective endocarditis, however uncertain and unclear. At this time, the risks of ALFONSO outweigh benefits, and would not recommend pursuing. Qualifiers: Sepsis type: methicillin resistant Staphylococcus aureus Qualified Code(s): A41.02 - Sepsis due to Methicillin resistant Staphylococcus aureus SNOMED Code(s): 38876904 (2) Bacteremia Current Visit: Yes Status: Acute MRSA bacteremia, likely etiology parotitis It is unlikely that this is related to an infective endocarditis as the patient does not have significant risk factors There are also no significant physical exam findings Gloria criteria are not met Treatment as above SNOMED Code(s): 6993819 (3) Acute suppurative parotitis Current Visit: Yes Status: Acute Causative agent: MRSA Treatment with manual milking of gland per ENT, continue IV Vancomycin SNOMED Code(s): 77950898 (4) SHANNON (acute kidney injury) Current Visit: Yes Status: Acute Acute kidney injury on chronic renal disease according to patient's medical history The patient did present with worsened acute kidney injury which has improved dramatically He does still appear to have dehydration according to labs Recommend adequate hydration per primary team SNOMED Code(s): 62389025, 75856937 (5) Hypernatremia Current Visit: Yes Status: Acute Hypernatremia, sodium 153 Although patient's mental status is poor, according to the patient's nurse this appears to be chronic Uncertain whether or not sodium has a role in this Management per primary team SNOMED Code(s): 424384841 (6) Dehydration Current Visit: Yes Status: Acute SNOMED Code(s): 06043780 (7) Diabetes Current Visit: No Status: Chronic Management per primary team Qualifiers: Diabetes mellitus type: type 2 Diabetes mellitus petroleum terminal plant operator insulin use: without petroleum terminal plant operator use Diabetes mellitus complication status: without complication Qualified Code(s): E11.9 - Type 2 diabetes mellitus without complications SNOMED Code(s): 88954722 (8) Dementia Current Visit: No Status: Chronic Dementia which is chronic Patient may be at his baseline mental status Qualifiers: Dementia type: unspecified type Dementia behavioral disturbance: with behavioral disturbance Qualified Code(s): F03.91 - Unspecified dementia with behavioral disturbance SNOMED Code(s): 60983265 Consult Discharge Plan - Plan Referrals: NONE,PCP [Primary Care Provider] - - Attending Attestation I examined this patient and my medical decision-making was reviewed with the Resident Physician. I agree with the documented findings, disposition and treatment plan as described except to the extent set forth below. Assessment and plan: Sepsis MRSA bacteremia likely source parotitis Parotitis with MRSA appreciate ENT input Acute kidney injury likely secondary to sepsis improved Diabetes mellitus type 2 Dementia Recommendations Continue vancomycin with goal vancomycin trough around 15 October DC Zosyn Duration of treatment 14 days from first negative culture I understand the TTE was negative but I have a low index suspicion for endocarditis so I will not do a ALFONSO
[2018-11-15] MEDS ORDERED: 0.9 % Sodium Chloride 1,000 ML IVC SCH (09:15)
--- NOTE | 2018-11-15 13:29 | Internal Med Progress Note ---
Hospitalist Progress Note - Encounter Date of Encounter: 11/15/18 Time of Encounter: 13:27 - Subjective Interval History: I have seen and evaluated the patient at bedside. edema of the left parotid gland continues to decrease. patient denies pain in the area. denies chest pain or shortness of breath, nausea or vomiting - Exam Vitals: Temp Pulse Resp BP Pulse Ox 99.0 F 109 16 150/80 90 11/15/18 10:41 11/15/18 10:41 11/15/18 10:41 11/15/18 10:41 11/15/18 10:41 Exam: Vitals: Reviewed General: Alert and oriented x3. in no distress HEENT: Left parotid edema, slightly improved Cardiovascular: RRR, normal S1 & S2, no rubs, murmurs or gallops. Lungs: CTA b/l, no wheezes or crackles. Abdomen: Obese, soft, non-tender, no rigidity. NABS in all 4 quadrants Extremities: No edema Neurological: No focal neurological deficits Rest of the physical exam is non contributory - Assessment and Plan (1) Bacteremia Current Visit: Yes Status: Acute Assessment and Plan: Blood cultures 11/11/18: 1 bottle:MRSA Abscess fluid culture, grew MRSA. Repeated Blood culture : no growth to date Plan: On vancomycin per pharmacy protocol patient will need to complete 14 days of IV antibiotics from first day of negative b/c. (2) Acute suppurative parotitis Current Visit: Yes Status: Acute Assessment and Plan: Parotid gland wound culture growing: MRSA Plan on vancomycin IV hydration withn 0.45%NS started on 0.45%NS @75 ml/hr x1 bag (3) Diabetes Current Visit: No Status: Chronic Assessment and Plan: Blood sugar is well controlled on short and long-acting insulin. (4) Dementia Current Visit: No Status: Chronic Assessment and Plan: Plan On mirtazapine 7.5 mg by mouth at bedtime. (5) Dysphagia Current Visit: Yes Status: Chronic (6) Hypertension Current Visit: No Status: Chronic Assessment and Plan: Blood pressure is well controlled on losartan 25 mg by mouth daily. (7) Hypophosphatemia Current Visit: Yes Status: Acute Assessment and Plan: electrolyte being replaced (8) Hypernatremia Current Visit: Yes Status: Acute Assessment and Plan: On 0.45%NS @75ml/hr. encourage oral intake will re-assess sodium level tomorrow morning (9) Sepsis Current Visit: Yes Status: Ruled-out DVT Prophylaxis: Patient is on heparin subcutaneous. - Summary of Assessment and Plan Summary of Assessment and Plan: Patient to remain in the hospital on IV antibiotics due to bacteremia. - Time Spent with Patient Total time spent is greater than 50% in coordination of care (as documented) at patient's floor/unit and/or counseling patient: Greater than 35 minutes (40) Plan of Care Discussed with: nurse Internal Medicine: Result - Labs CBC & Chem 7: 11/15/18 02:59 11/15/18 02:59 Labs: Short CBC 11/15/18 Range/Units 02:59 WBC 8.0 (4.3-11.1) K/mcL Hgb 13.4 (12.9-16.9) g/dL Hct 43.6 (37.5-50.1) % Plt Count 216 (140-400) K/mcL Neutrophils # 4.4 (1.6-8.9) K/mcL BMP 11/15/18 02:59 Sodium 152 H Potassium 3.6 Chloride 121 H Carbon Dioxide 25 BUN 27 H Creatinine 1.17 Glucose 125 H Calcium 9.4 Consult Discharge Plan - Plan Referrals: NONE,PCP [Primary Care Provider] - (3) Diabetes Qualifiers: Diabetes mellitus type: type 2 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 care use Diabetes mellitus complication status: without complication Qualified Code(s): E11.9 - Type 2 diabetes mellitus without complications (4) Dementia Qualifiers: Dementia type: unspecified type Dementia behavioral disturbance: with behavioral disturbance Qualified Code(s): F03.91 - Unspecified dementia with behavioral disturbance (5) Dysphagia Qualifiers: Dysphagia type: oral phase Qualified Code(s): R13.11 - Dysphagia, oral phase (6) Hypertension Qualifiers: Hypertension type: essential hypertension Qualified Code(s): I10 - Essential (primary) hypertension (9) Sepsis Qualifiers: Sepsis type: methicillin resistant Staphylococcus aureus Qualified Code(s): A41.02 - Sepsis due to Methicillin resistant Staphylococcus aureus
[2018-11-15] MEDS ORDERED: Lidocaine -MPF 1% 5 ML AMPUL INFILT ONE (14:27)
[2018-11-15] MEDS: Mirtazapine 15 MG TABLET PO SCH (21:22)
[2018-11-15] MEDS: traMADol 50 MG TABLET PO PRN (21:22)
[2018-11-15] MEDS: Melatonin 3 MG TABLET PO SCH (21:23)
[2018-11-15] MEDS: Insulin DETEMIR 100 UNIT/ML X5UNITS SQ SCH (21:23)
[2018-11-16] MEDS: *HR* Heparin 5,000 UNIT/ML VIAL SQ SCH (04:59)
[2018-11-16] MEDS: traMADol 50 MG TABLET PO PRN (05:11)
[2018-11-16 05:33] LABS: Basophils % 0.3 %; Eosinophils # 0.4 K/mcL (0.0-0.6); Eosinophils % 5.6 %; Hematocrit 44.1 % (37.5-50.1); Hemoglobin 13.8 g/dL (12.9-16.9); Immature Granulocytes % 0.3 % (0-4); Lymphocytes # 2.4 K/mcL (0.6-4.6); Lymphocytes % 31.9 %; Mean Corpuscular HGB Conc 31.3 g/dL (31.6-35.5); Mean Corpuscular Hemoglobin 29.6 pg (28.0-33.3); Mean Corpuscular Volume 94.4 fL (83.0-100.0); Mean Platelet Volume 11.1 fL (9.4-12.4); Monocytes # 0.6 K/mcL (0.0-1.3); Monocytes % 7.8 %; Platelet Count 201 K/mcL (140-400); Red Blood Count 4.67 M/mcL (4.19-5.50); Red Cell Distribution Width 13.8 % (11.5-14.5); Segmented Neutrophils % 54.1 %; White Blood Count 7.5 K/mcL (4.3-11.1)
[2018-11-16 05:50] LABS: BUN/Creatinine Ratio 19 (6-26); Blood Urea Nitrogen 22 mg/dL (8-23); Calcium 9.4 mg/dL (8.6-10.3); Carbon Dioxide 26 mEq/L (23-29); Chloride 121 mEq/L (98-107); Glucose 131 mg/dL (70-105); Magnesium 1.8 mg/dL (1.6-2.6); Osmolality,Calculated 313 (280-300); Phosphorous 2.9 mg/dL (2.7-4.5); Potassium 3.4 mEq/L (3.5-5.1); Sodium 149 mEq/L (136-145); eGFR For African Americans > 60 (> 60); eGFR For Non-African Americans > 60 (> 60)
[2018-11-16 07:58] VITALS: BP 151/91
[2018-11-16] MEDS: Insulin LISPRO 300 UNITS/3 ML VIAL SQ SCH ×2 (08:08→12:11)
[2018-11-16] MEDS: Cholecalciferol (D-3) 1,000 UNIT TABLET PO SCH (08:50)
--- NOTE | 2018-11-16 08:54 | Discharge Summary ---
- NOTES TO OUTPATIENT PROVIDER Notes to Outpatient Provider: Vanco Trough and kidney function. Orders not resulted at time of discharge: Pending orders 11/11/18 16:30 Culture,Blood [BC] Routine 11/11/18 17:05 Culture,Anaerobic [RM] Routine 11/13/18 17:53 Culture,Blood [BC] Stat Date of Encounter: 11/16/18 Time of Encounter: 08:53 - Discharge Diagnosis (1) Bacteremia Priority: Primary Status: Acute (2) Acute suppurative parotitis Priority: Primary Status: Acute (3) Diabetes Priority: Secondary Status: Chronic Qualifiers: Diabetes mellitus type: type 2 Diabetes mellitus senior living insulin use: without senior living use Diabetes mellitus complication status: without complication Qualified Code(s): E11.9 - Type 2 diabetes mellitus without complications (4) Dementia Priority: Secondary Status: Chronic Qualifiers: Dementia type: unspecified type Dementia behavioral disturbance: with behavioral disturbance Qualified Code(s): F03.91 - Unspecified dementia with behavioral disturbance (5) Dysphagia Priority: Secondary Status: Chronic Qualifiers: Dysphagia type: oral phase Qualified Code(s): R13.11 - Dysphagia, oral phase (6) Hypertension Priority: Secondary Status: Chronic Qualifiers: Hypertension type: essential hypertension Qualified Code(s): I10 - Essential (primary) hypertension (7) Hypophosphatemia Priority: Secondary Status: Resolved (8) Hypernatremia Priority: Secondary Status: Resolved (9) Sepsis Priority: Secondary Status: Ruled-out Qualifiers: Sepsis type: methicillin resistant Staphylococcus aureus Qualified Code(s): A41.02 - Sepsis due to Methicillin resistant Staphylococcus aureus Hospital course: Mr. Melara is a 83 year old male H diabetes, CVA and dementia with chronic Giraldo presented to OSH on 11/11/18 with complaints of facial cellulitis. He was found to have sialadenitis in the left parotid gland therefore he was transferred to [facility] for IV ATB and ENT evaluation. Patient admitted to the hospital. ENT consulted: recommended aggressive hydratio n mouth cleaning milking the gland regularly applying lemon juice to the duct several times daily. Abscess culture: MRSA. Blood culture: 1 bottle, MRSA. Repeated blood culture: No growth to date. TTE: unremarkable. ID consulted recommended vancomycin IV x14 days, trough goal 15-20. Patient is hemodynamically stable to be discharged back to ECF. ENT consulted: recommended aggressive hydration mouth cleaning milking the gland regularly applying lemon juice to the duct several times daily. - Time Spent with Patient Total time spent providing and/or coordinating discharge services: Time spent: Greater than 30 minutes (35) - Discharge Medications Prescriptions: New Vancomycin HCl 1 gm IV DAILY 11 Days #11 vial Continued Losartan Potassium 25 mg PO DAILY Magnesium Hydroxide [Milk of Magnesia] 2,400 mg PO DAILY PRN PRN Reason: Constipation Atorvastatin [Lipitor] 40 mg PO HS tablet metFORMIN [Glucophage] 500 mg PO BID #0 Aspirin [Adult Aspirin Regimen] 81 mg PO DAILY Bisacodyl [Gentle Laxative] 10 mg RC DAILY PRN PRN Reason: TO PROMOTE BM Duloxetine HCl [Cymbalta] 60 mg PO DAILY Non-Formulary Medication 32 ml PO Q8H PRN PRN Reason: GERD HYDROcodone/Acet 5/325 mg [[place] 5-325 mg] 0.5 tab PO Q4H PRN 5 Days #10 tablet PRN Reason: Pain Saline Nasal [place] [[place] Nasal [place]] 2 spray NS TID PRN PRN Reason: Congestion Omeprazole [PriLOSEC] 20 mg PO DAILY Mirtazapine 7.5 mg PO HS Melatonin [Melatin] 3 mg PO QPM Lidocaine Patch [Lidoderm 5% patch] 1 patch TP DAILY PRN PRN Reason: Pain Dextran 70/Hypromellose [Artificial Tears] 2 drop BOTH EYES BID Cyanocobalamin (Vitamin B-12) [Vitamin B12] 1,000 mcg PO DAILY Cholecalciferol (Vitamin D3) [Vitamin D3] 50,000 unit PO Q2W Acetaminophen [Tylenol] 325 mg PO Q6HR PRN PRN Reason: Pain/FEVER Ascorbate Calcium [Vitamin C] 500 mg PO BID Discontinued HYDROcodone/Acet 5/325 mg [[place] 5-325 mg] 0.5 tab PO Q4H Home Medications: Acetaminophen [Tylenol] 325 mg PO Q6HR PRN 09/27/18 [History] Cholecalciferol (Vitamin D3) [Vitamin D3] 50,000 unit PO Q2W 09/27/18 [History] Cyanocobalamin (Vitamin B-12) [Vitamin B12] 1,000 mcg PO DAILY 09/27/18 [History] Dextran 70/Hypromellose [Artificial Tears] 2 drop BOTH EYES BID 09/27/18 [History] Lidocaine Patch [Lidoderm 5% patch] 1 patch TP DAILY PRN 09/27/18 [History] Melatonin [Melatin] 3 mg PO QPM 09/27/18 [History] Mirtazapine 7.5 mg PO HS 09/27/18 [History] Omeprazole [PriLOSEC] 20 mg PO DAILY 09/27/18 [History] Saline Nasal [place] [[place] Nasal [place]] 2 spray NS TID PRN 09/27/18 [History] Losartan Potassium 25 mg PO DAILY 10/30/18 [History] Magnesium Hydroxide [Milk of Magnesia] 2,400 mg PO DAILY PRN 10/30/18 [History] Atorvastatin [Lipitor] 40 mg PO HS tablet 10/31/18 [Rx] metFORMIN [Glucophage] 500 mg PO BID #0 10/31/18 [Rx] Ascorbate Calcium [Vitamin C] 500 mg PO BID 11/11/18 [History] Aspirin [Adult Aspirin Regimen] 81 mg PO DAILY 11/13/18 [History] Bisacodyl [Gentle Laxative] 10 mg RC DAILY PRN 11/13/18 [History] Duloxetine HCl [Cymbalta] 60 mg PO DAILY 11/13/18 [History] Non-Formulary Medication 32 ml PO Q8H PRN 11/13/18 [History] HYDROcodone/Acet 5/325 mg [[place] 5-325 mg] 0.5 tab PO Q4H PRN 5 Days #10 tablet 11/16/18 [Rx] Vancomycin HCl 1 gm IV DAILY 11 Days #11 vial 11/16/18 [Rx] Allergies/Adverse Reactions: Allergy/AdvReac Type Severity Reaction Status Date / Time No Known Allergies Allergy Verified 11/13/18 10:38 Date of admission: 11/11/18 15:56 Primary care physician: PCP NONE Consults: 11/11/18 16:31 Consult to ENT [CONS] Routine Consulting Provider: ENT Anabella Reason for Consult: sialadenitis in the left parotid gland. Call Completed: Yes 11/12/18 09:06 Consult to Wrecking Car Driver [CONS] Routine Reason for SW Consult: PATIENT FROM [facility] 11/13/18 17:12 Consult to Infectious Diseases [CONS] Routine Consulting Provider: Infectious Disease Anabella Reason for Consult: gram positive cocci bacteremia Call Completed: No 11/15/18 14:27 Consult to Invasive Line Access Team [CONS] Routine Reason for Consult: Picc Line Insertion Line Type: PICC - Constitutional Vitals: Temp Pulse Resp BP Pulse Ox 97.3 F L 84 17 151/91 93 11/16/18 07:51 11/16/18 07:51 11/16/18 07:51 11/16/18 07:51 11/16/18 07:51 General appearance: Present: A&O X 1 Exam: Vitals: Reviewed General: AOx3. in no distress HEENT: Left parotid edema, almost completely resolved Cardiovascular: RRR, normal S1 & S2, no rubs, murmurs or gallops. Lungs: CTA b/l, no wheezes or crackles. Abdomen: Obese, soft, non-tender, no rigidity. NABS in all 4 quadrants Extremities: No edema Neurological: No focal neurological deficits Rest of the physical exam is non contributory - Patient Status Disposition: Transfer SNF Condition: Fair Functional capacity at discharge: uses cane/walker Overall status at discharge: patient is back to baseline - Discharge Instructions Follow Up With: NONE,PCP [Primary Care Provider] - - Diet and Activity Activity: as per physical therapy Diet: other (mechanically altered diet and nectar thickened diet )
--- NOTE | 2018-11-16 09:05 | Physician Discharge Referral ---
ExtendedCare Referral Info Transfer To: [facility] - Diagnosis (1) Bacteremia Priority: Primary Status: Acute (2) Acute suppurative parotitis Priority: Primary Status: Acute (3) Diabetes Priority: Secondary Status: Chronic (4) Dementia Priority: Secondary Status: Chronic (5) Dysphagia Priority: Secondary Status: Chronic (6) Hypertension Priority: Secondary Status: Chronic (7) Hypophosphatemia Priority: Secondary Status: Resolved (8) Hypernatremia Priority: Secondary Status: Resolved (9) Sepsis Priority: Secondary Status: Ruled-out Prognosis: Fair Aware of Diagnosis: Patient Aware of Prognosis: Patient - Transfer Medications Prescriptions: HYDROcodone/Acet 5/325 mg [[place] 5-325 mg] 0.5 tab PO Q4H PRN 5 Days #10 tablet PRN Reason: Pain Vancomycin HCl 1 gm IV DAILY 11 Days #11 vial Home Medications: Acetaminophen [Tylenol] 325 mg PO Q6HR PRN 09/27/18 [History] Cholecalciferol (Vitamin D3) [Vitamin D3] 50,000 unit PO Q2W 09/27/18 [History] Cyanocobalamin (Vitamin B-12) [Vitamin B12] 1,000 mcg PO DAILY 09/27/18 [History] Dextran 70/Hypromellose [Artificial Tears] 2 drop BOTH EYES BID 09/27/18 [History] Lidocaine Patch [Lidoderm 5% patch] 1 patch TP DAILY PRN 09/27/18 [History] Melatonin [Melatin] 3 mg PO QPM 09/27/18 [History] Mirtazapine 7.5 mg PO HS 09/27/18 [History] Omeprazole [PriLOSEC] 20 mg PO DAILY 09/27/18 [History] Saline Nasal [place] [[place] Nasal [place]] 2 spray NS TID PRN 09/27/18 [History] Losartan Potassium 25 mg PO DAILY 10/30/18 [History] Magnesium Hydroxide [Milk of Magnesia] 2,400 mg PO DAILY PRN 10/30/18 [History] Atorvastatin [Lipitor] 40 mg PO HS tablet 10/31/18 [Rx] metFORMIN [Glucophage] 500 mg PO BID #0 10/31/18 [Rx] Ascorbate Calcium [Vitamin C] 500 mg PO BID 11/11/18 [History] Aspirin [Adult Aspirin Regimen] 81 mg PO DAILY 11/13/18 [History] Bisacodyl [Gentle Laxative] 10 mg RC DAILY PRN 11/13/18 [History] Duloxetine HCl [Cymbalta] 60 mg PO DAILY 11/13/18 [History] Non-Formulary Medication 32 ml PO Q8H PRN 11/13/18 [History] HYDROcodone/Acet 5/325 mg [[place] 5-325 mg] 0.5 tab PO Q4H PRN 5 Days #10 tablet 11/16/18 [Rx] Vancomycin HCl 1 gm IV DAILY 11 Days #11 vial 11/16/18 [Rx] Allergies/Adverse Reactions: Allergy/AdvReac Type Severity Reaction Status Date / Time No Known Allergies Allergy Verified 11/13/18 10:38 - Respiratory Orders None Smoking Cessation: Smoking cessation has been advised. For more information, call the [place] Tobacco Quit Line at 1-007-NYDRNOW. - Advance Directives Code Status: Full Code - Mobility Orders Ambulate - Rehabiliation Orders Rehab Potential: Fair Rehab Orders: Evaluation for Physical Therapy, Evaluation for Occupational Therapy CERTIFICATION: I certify that the transfer of the above named patient to an [facility] is necessary for the continuing treatment of the diagnosis listed. The above information is true and accurate reflection of patient's current condition. Confidential - Redisclosure prohibited without a patient's written consent.
--- NOTE | 2018-11-16 09:58 | Infectious Disease Progress No ---
ID Progress Note - Subjective Subjective: The patient is resting in bed at time of examination. His mental status does appear to be better than it was previously. His pain has improved in comparison to prior exam. He has no acute complaints today. - Objective CBC & Chem 7: 11/16/18 05:06 11/16/18 05:06 - Exam Vitals: Temp Pulse Resp BP Pulse Ox 97.3 F L 84 17 151/91 93 11/16/18 07:51 11/16/18 07:51 11/16/18 07:51 11/16/18 07:51 11/16/18 07:51 Exam: Gen: Vitals noted. No acute distress. Patient is agitated and confused. Eyes: anicteric sclerae, moist conjunctivae; No conjunctival hemomorhage Cardiac: RRR, no murmur, +S1/S2 Pulmonary: CTA bilaterally, no wheezes, rales or rhonchi, equal chest expansion Extremities: no BLE edema, nontender calf, no cyanosis or clubbing Skin: Normal temperature, turgor and texture; no rash, ulcers or subcutaneous nodules. No stigmata of infective endocarditis Neuro: Poorly communicative. Cannoy answer questions appropriately, does respond to commands. moves all extremities, no focal deficits. Psych: Agitated, confused. AxOx1 (alert and oriented to person.) - Assessment and Plan (1) Sepsis Status: Ruled-out Severe Sepsis secondary to MRSA bacteremia and acute suppurative parotitis. Resolved SIRS Criteria on admission: HR 101, WBC 18.4. Causative agent: MRSA bacteremia. Patient presented with left acute suppurative parotitis as evidenced by CT study and abscess drainage positive for MRSA End organ damage noted on admission, SHANNON with serum creatinine 1.47, baseline 0 .8-1.0 TTE 11/13/18 Demonstrates no evidence for new valvular regurgitation, valves not well visualized Evaluated by ENT, recommended IV abx, hydration PO, milking the gland and applying lemon juice Gloria criteria: 1 Major, 1 Minor. Do not highly suspect infective endocarditis, however it is possible even if not highly likely Cultures 11/13/18 Blood cultures NGTD x2 11/11/18 Wound culture positive, MRSA resistant to cipro, levaquin, erythromycin 11/11/18 Wound anaerobic culture NGTD 11/11/18 Blood culture positive, MRSA x1, resistant cipro, levaquin, erythromycin Abx Vancomycin day 6 Recommendations -Continue IV Vancomycin -will require 14d course total, as this is uncomplicated. Patient has no hardware, no valve replacements -Goal trough 15-20 -Stop date 11/27/18 -Gloria criteria: 1 Major, 1 Minor. Possibly infective endocarditis, however uncertain and unclear. At this time, the risks of ALFONSO outweigh benefits, and would not recommend pursuing. -DC with PICC for 14d Course IV Vancomycin Qualifiers: Sepsis type: methicillin resistant Staphylococcus aureus Qualified Code(s): A41.02 - Sepsis due to Methicillin resistant Staphylococcus aureus SNOMED Code(s): 69728879 (2) Bacteremia Status: Acute MRSA bacteremia, likely etiology parotitis It is unlikely that this is related to an infective endocarditis as the patient does not have significant risk factors There are also no significant physical exam findings Gloria criteria are not met Treatment as above SNOMED Code(s): 9575119 (3) Acute suppurative parotitis Status: Acute Causative agent: MRSA Treatment with manual milking of gland per ENT, continue IV Vancomycin SNOMED Code(s): 93907398 (4) SHANNON (acute kidney injury) Status: Acute Acute kidney injury on chronic renal disease according to patient's medical history The patient did present with worsened acute kidney injury which has improved dramatically He does still appear to have dehydration according to labs Recommend adequate hydration per primary team SNOMED Code(s): 36905008, 70399206 (5) Diabetes Status: Chronic Management per primary team Qualifiers: Diabetes mellitus type: type 2 Diabetes mellitus marine oil terminal superintendent insulin use: without senior care use Diabetes mellitus complication status: without complication Qualified Code(s): E11.9 - Type 2 diabetes mellitus without complications SNOMED Code(s): 50193156 (6) Dementia Status: Chronic Dementia which is chronic Patient may be at his baseline mental status Qualifiers: Dementia type: unspecified type Dementia behavioral disturbance: with behavioral disturbance Qualified Code(s): F03.91 - Unspecified dementia with behavioral disturbance SNOMED Code(s): 93467765 Consult Discharge Plan - Plan Referrals: NONE,PCP [Primary Care Provider] - Prescriptions: HYDROcodone/Acet 5/325 mg [[place] 5-325 mg] 0.5 tab PO Q4H PRN 5 Days #10 tablet PRN Reason: Pain Vancomycin HCl 1 gm IV DAILY 11 Days #11 vial - Attending Attestation I have personally performed a face to face evaluation on this patient. I have reviewed and agree with the care plan. History and Exam by me shows: Assessment and plan: 1.Sepsis 2.MRSA bacteremia likely source parotitis 3.Parotitis with MRSA appreciate ENT input 4.Acute kidney injury likely secondary to sepsis improved 5.Diabetes mellitus type 2 6.Dementia Recommendations continue vancomycin with goal vanc trough of 15 duration of treatment through 11/27/18 weekly cbc, bmp, vanc trough
[2018-11-16] MEDS ORDERED: Aminoglycoside Consult 1 EACH MC ONE (13:39)
== END 2018-11-16 13:40 | DRG 155 ==
LOC: 3BNU → SUATTDRO 15:56
PROVIDERS: ADMIT Internal Medicine Nephrology; ATTEND Internal Medicine